=== PATIENT | female | born 1965 | race African-American/Black ===

== ENCOUNTER 2017-06-17 03:31 | Inpatient (IN) | payer BC ==
[~2017-06-17] VITALS: Ht 160 cm; Wt 193.9 kg
[2017-06-17] VITALS (7 sets, daily range): BP systolic 85–116; BP diastolic 46–69
[2017-06-17] MEDS: IV NORMAL SALINE 1000ML BAG 1,000 ML IV SCH ×7 (04:00→11:32)
[2017-06-17 04:16] LABS: BASO % 0 % (0-3); EOS % 0 % (0-3); HEMATOCRIT 23.3 % (36.0-47.0); HEMOGLOBIN 7.6 g/dL (12.0-15.5); LYMPH # 0.5 x10^3/uL (1.0-4.8); LYMPH % 3 % (24-48); MEAN CORPUSCULAR HEMOGLOBIN 28 pg (25-35); MEAN CORPUSCULAR HGB CONC 33 g/dL (31-37); MEAN CORPUSCULAR VOLUME 87 fL (79-100); MONO % 2 % (0-9); NEUT % 94 % (31-73); PLATELET COUNT 209 x10^3/uL (140-400); RED CELL DISTRIBUTION WIDTH 17.9 % (11.5-14.5); WHITE BLOOD COUNT 17.5 x10^3/uL (4.0-11.0)
[2017-06-17 04:28] LABS: CALCIUM 8.4 mg/dL (8.5-10.1); CREATININE 1.3 mg/dL (0.6-1.0); GFR 51.6; POTASSIUM 3.9 mmol/L (3.5-5.1)
[2017-06-17] MEDS ORDERED: VANCOMYCIN PER PHARMACY MC PRN (04:30)
[2017-06-17 04:34] LABS: DIRECT BILIRUBIN 0.2 mg/dL (0.0-0.2); TOTAL BILIRUBIN 0.6 mg/dL (0.2-1.0); TOTAL PROTEIN 6.7 g/dL (6.4-8.2)
[2017-06-17] MEDS ORDERED: PIP/TAZO PER PHARMACY MC PRN (05:00)
[2017-06-17] MEDS ORDERED: CLINDAMYCIN 600MG PREMIX 50 ML IV ONE (05:00)
[2017-06-17] MEDS ORDERED: PIPERACILLIN/TAZOBACTAM 4.5 GM in IV NORMAL SALINE 100ML 100 ML IV ONE (05:30)
[2017-06-17] MEDS ORDERED: ONDANSETRON PF 4 MG/2 ML VIAL. ONE (05:33)
[2017-06-17] MEDS: fentaNYL PF VIAL 100 MCG/2 ML VIAL IV PRN ×3 (05:37→16:04)
[2017-06-17 05:41] LABS: BILIRUBIN,URINE SMALL (NEG); GLUCOSE,URINE NEGATIVE (NEG); NITRITE,URINE NEGATIVE (NEG); PH,URINE 5.5; PROTEIN,URINE NEGATIVE (NEG-TRACE); UROBILINOGEN,URINE 0.2 mg/dL (0.2 mg/dL)
[2017-06-17 05:49] LABS: BARBITURATES NEG (NEG); BENZODIAZEPINES NEG (NEG); CANNABINOIDS NEG (NEG); COCAINE NEG (NEG); METHADONE NEG (NEG); OPIATES POS (NEG); PHENCYCLIDINE NEG (NEG)
[2017-06-17 05:58] LABS: BACTERIA,URINE 0 /HPF (0-FEW); RBC,URINE 0 /HPF (0-2); SQUAMOUS EPITHELIAL CELL,UR MOD /LPF; WBC,URINE OCC /HPF (0-4)
[2017-06-17] MEDS ORDERED: ONDANSETRON PF 4 MG/2 ML VIAL. IV ONE (06:00)
[2017-06-17] MEDS ORDERED: ONDANSETRON PF 4 MG/2 ML VIAL. IV PRN ×2 (06:30→13:30)
[2017-06-17] MEDS ORDERED: DEXTROSE 50% 25 GM / 50ML DISP.SYRIN. IV PRN (06:30)
[2017-06-17] MEDS ORDERED: fentaNYL PF VIAL 100 MCG/2 ML VIAL IV PRN (06:30)
[2017-06-17] MEDS ORDERED: ACETAMINOPHEN 325 MG TABLET. PO PRN ×3 (06:30→13:30)
--- NOTE | 2017-06-17 07:09 | EKG ---
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
--- NOTE | 2017-06-17 07:55 | RAD ---
Indication heart palpitations. A single view of the chest was obtained. No prior imaging of the chest is available. The heart and pulmonary vessels appear normal. The lungs are clear of acute infiltrates. Significant pleural fluid is not present. There is no pneumothorax. A right PICC line is noted with its tip at the brachiocephalic SVC junction. IMPRESSION: No acute or focal process seen in the chest
[2017-06-17] MEDS: INSULIN ASPART 300 UNITS/3 ML INSULN.PEN SQ SCH ×3 (08:00→17:00)
[2017-06-17] MEDS: IPRATRPIUM/ALBUTEROL 0.5/2.5MG 3 ML NEBU. NEB SCH ×4 (08:16→19:56)
--- NOTE | 2017-06-17 08:43 | ED.ADGEN ---
Past Medical History Past Medical History: Anemia, Diabetes-Type II, Hypertension Additional Past Medical Histor: MYOPATHY,LYPHEDEMA, CONSTIPATION,MORBID OBESITY Past Surgical History: Other Additional Past Surgical Histo: UNKNOWN WOUND VACS IN PLACE. 05/2017 Alcohol Use: None Drug Use: None Adult General Chief Complaint Chief Complaint: Palpitations HPI HPI Patient is a 52 year old woman, history of morbid obesity, lymphedema, with wound VAC in place, hypertension, who presents the emergency department from her nursing facility with report of tachycardia and palpitations. Patient also was noted to have a fever earlier today, and received Tylenol, was initiated on antibiotics with PICC line placement with concern for development of sepsis. Patient currently is a heart rate in the 120s, blood pressure was reportedly initially 130s over 60s however, in the ED patient's blood pressure is 60s over 40s, patient with normal mentation, is denying pain, states that she is feeling a rapid heart beat, but denies any shortness of breath, any nausea or vomiting, any weakness, numbness, tingling, injuries. Noted to have severe lymphedema bilaterally lower extremities which is chronic, with wound VAC in place as stated. Patient received a dose of Zosyn and ciprofloxacin yesterday after initiation by her nurse practitioner. She denies any urinary complaints, any injuries, or changes. Review of Systems Review of Systems Constitutional: Denies fever or chills. [] Eyes: Denies change in visual acuity. [] HENT: Denies nasal congestion or sore throat. [] Respiratory: Denies cough or shortness of breath. [] Cardiovascular: Denies chest pain or edema. [] Palpitations. GI: Denies abdominal pain, nausea, vomiting, bloody stools or diarrhea. [] : Denies dysuria. [] Musculoskeletal: Denies back pain or joint pain. [] Integument: Denies rash. [] Neurologic: Denies headache, focal weakness or sensory changes. [] Endocrine: Denies polyuria or polydipsia. [] Lymphatic: Denies swollen glands. [] Psychiatric: Denies depression or anxiety. [] Current Medications Current Medications Current Medications Medications (Trade) Dose Ordered Sig/Soledad Start Time Stop Time Status Last Admin Dose Admin Fentanyl Citrate (Fentanyl 2ml Vial) 25 mcg PRN Q15MIN PRN 06/17/17 04:00 06/18/17 03:59 06/17/17 05:37 25 MCG Physical Exam Physical Exam Constitutional: Well developed, morbidly obese, chronically ill in appearance, in no acute distress. [] HENT: Normocephalic, atraumatic, bilateral external ears normal, oropharynx moist, no oral exudates, nose normal. [] Eyes: PERRLA, EOMI, conjunctiva normal, no discharge. [] Neck: Normal range of motion, no tenderness, supple, no stridor. [] Cardiovascular:Heart rate regular rhythm, no murmur, S1, S2, tachycardic, no rubs or gallops. [] Lungs & Thorax: Diminished breath of the bases bilaterally, limited secondary to body habitus, no rhonchi or rales identified, no chest wall crepitus or tenderness. Right-sided PICC line in place. Abdomen: Bowel sounds normal, obese, no rebound, rigidity, no guarding, soft, no tenderness, no masses, no pulsatile masses. [] Skin: Warm, dry, no erythema, no rash. [] Back: No tenderness, no CVA tenderness. [] Extremities: Patient with severe lymphedema bilateral lower extremities, with scarring and skin creases noted, patient with open area of denuded skin over the lateral aspect of the left foot, with granulation tissue and some mild drainage. No induration or abscess formation identified. Neurologic: Alert and oriented X 3, normal motor function, normal sensory function, no focal deficits noted. [] Psychologic: Affect normal, judgement normal, mood normal. [] Current Patient Data Vital Signs Vital Signs Date Time Temp Pulse Resp B/P (MAP) Pulse Ox O2 Delivery O2 Flow Rate FiO2 06/17/17 04:10 114 32 84/41 (55) 95 Room Air 06/17/17 03:36 102.0 102.0 Lab Values Laboratory Tests Test 06/17/17 03:48 White Blood Count 17.5 x10^3/uL (4.0-11.0) H Red Blood Count 2.70 x10^6/uL (3.50-5.40) L Hemoglobin 7.6 g/dL (12.0-15.5) L Hematocrit 23.3 % (36.0-47.0) L Mean Corpuscular Volume 87 fL (79-100) Mean Corpuscular Hemoglobin 28 pg (25-35) Mean Corpuscular Hemoglobin Concent 33 g/dL (31-37) Red Cell Distribution Width 17.9 % (11.5-14.5) H Platelet Count 209 x10^3/uL (140-400) Neutrophils (%) (Auto) 94 % (31-73) H Lymphocytes (%) (Auto) 3 % (24-48) L Monocytes (%) (Auto) 2 % (0-9) Eosinophils (%) (Auto) 0 % (0-3) Basophils (%) (Auto) 0 % (0-3) Neutrophils # (Auto) 16.5 x10^3uL (1.8-7.7) H Lymphocytes # (Auto) 0.5 x10^3/uL (1.0-4.8) L Monocytes # (Auto) 0.4 x10^3/uL (0.0-1.1) Eosinophils # (Auto) 0.0 x10^3/uL (0.0-0.7) Basophils # (Auto) 0.0 x10^3/uL (0.0-0.2) Platelet Estimate Pending Sodium Level 137 mmol/L (136-145) Potassium Level 3.9 mmol/L (3.5-5.1) Chloride Level 101 mmol/L (98-107) Carbon Dioxide Level 27 mmol/L (21-32) Anion Gap 9 (6-14) Blood Urea Nitrogen 24 mg/dL (7-20) H Creatinine 1.3 mg/dL (0.6-1.0) H Estimated GFR (Cockcroft-Gault) 51.6 Glucose Level 110 mg/dL (70-99) H Lactic Acid Level 1.5 mmol/L (0.4-2.0) Calcium Level 8.4 mg/dL (8.5-10.1) L Total Bilirubin 0.6 mg/dL (0.2-1.0) Direct Bilirubin 0.2 mg/dL (0.0-0.2) Aspartate Amino Transferase (AST) 27 U/L (15-37) Alanine Aminotransferase (ALT) 17 U/L (14-59) Alkaline Phosphatase 83 U/L (46-116) Troponin I Quantitative < 0.017 ng/mL (0.000-0.055) FD-Zct-T-Type Natriuretic Peptide 3236 pg/mL (0-124) H Total Protein 6.7 g/dL (6.4-8.2) Albumin 2.0 g/dL (3.4-5.0) L Thyroid Stimulating Hormone (TSH) 7.770 uIU/mL (0.358-3.74) H Laboratory Tests 06/17/17 03:48 Laboratory Tests 06/17/17 03:48 EKG EKG EC: Sinus tachycardia, heart rate 112 bpm, upright axis, QTC of 419, FL 114, QRS of 68, mild baseline artifact noted, no ST elevations or depressions, abnormal ECG, does not meet STEMI criteria. As interpreted by me. [] Radiology/Procedures Radiology/Procedures [][facility] [address] [place] [address] IMAGING REPORT Signed PATIENT: CAITIE SHIELDS ACCOUNT: [id number] : 1965 LOCATION: [facility] ICU AGE: 52 SEX: F EXAM STATUS: ADM IN ORD. PHYSICIAN: DAVIDSON MONTES DO REASON: Palpitations PROCEDURE: PORTABLE CHEST 1V Indication heart palpitations. A single view of the chest was obtained. No prior imaging of the chest is available. The heart and pulmonary vessels appear normal. The lungs are clear of acute infiltrates. Significant pleural fluid is not present. There is no pneumothorax. A right PICC line is noted with its tip at the brachiocephalic SVC junction. IMPRESSION: No acute or focal process seen in the chest DICTATED and SIGNED BY: JADEN HAIDER MD DATE: 06/17/17747 CC: LALI GRAF III DO; DAVIDSON MONTES DO; NIRALI BETANCOURT ~ Course & Med Decision Making Course & Med Decision Making Pertinent Labs and Imaging studies reviewed. (See chart for details) Patient initiated on sepsis protocol upon arousing the ED, including 30 mL/kg fluid bolus. Gloria catheter was placed, after receiving 2 L of fluid, patient's blood pressures are now 100s over 50s and 60s, heart rates have now dropped down to the low 100s, urine output is only 80 mL at this time. Will continue with the rest of the patient's fluid bolus at this point, patient's lungs remain clear, oxygen saturation and respiratory function remains stable at this time. Concern for severe sepsis as stated, patient with leukocytosis of 17.5, left shift, no bandemia. Patient is a history of congestive heart failure, at this time after receiving additional 2 L of fluid, blood pressures remain labile , low 100s to 90s over 50s and 60s, heart rate remains in the low 100s. No evidence of respiratory or pulmonary compromise at this time. PICC line is in place, no indication for pressors at this time, as patient is responding to fluid bolus, and has evidence of inadequate resuscitation at this time. Patient initiated on Zosyn and clindamycin, blood cultures and urine cultures pending. No evidence of infection and urinalysis. Chest x-ray is unremarkable. I did discuss these findings with patient, concern for possible infection of her lower extremities, with wound VAC in place, consultation placed for infectious disease, and for wound management. Patient continues to rest comfortably without complaints, states she is feeling better at this time. Findings as above discussed with Dr. Graf of internal medicine, patient accepted to his service as a full admission to the ICU for continued resuscitation, consultation , and close monitoring. Bridge orders entered per discussion. Dragon Disclaimer Dragon Disclaimer This electronic medical record was generated, in whole or in part, using a voice recognition dictation system. Critical Care Time Critical care time was 20 minutes exclusive of procedures. Departure Impression: Primary Impression: Sepsis Disposition: ADMITTED INPATIENT Admitting Physician: Lali Graf Condition: IMPROVED DAVIDSON MONTES DO Jun 17, 2017 08:43
--- NOTE | 2017-06-17 09:31 | PDOC2 ---
IM Consult Referring physician Dr Graf for sepsis Date of Admission DATE: 06/17/17 TIME: 09:20 Chief Complaint Chief Complaint 52 yr old BF with h/o lymphedema who was at [facility], transferred here for fever, tachycardia and possible sepsis. Did have zosyn and cipro yesterday and picc placed. Pt hypotensive, tachycardic, and fever 102. Normal lactic acid, c/o rt leg pain, no other complaints. Problems: Past Medical History Cardiovascular: HTN Heme/Onc: Anemia NOS Endocrine: Diabetes Dermatology: Other (rt leg wound and left foot wound) Past Surgical History Past Surgical History: Other (rt leg hematoma surgery, and lyposuction done) Past Social History PSH neg for smoking, etoh, drugs Review of Symptoms Review of Symptoms General ROS: positive for - Psychological ROS: negative Ophthalmic ROS: negative ENT ROS: negative Allergy and Immunology ROS: negative Hematology and Lymphatic: negative Endocrine ROS: negative Respiratory ROS: no cold, cough, dyspnea. Cardiovascular ROS: no chest pain or dyspnea on exertion Gastrointestinal ROS: no abdominal pain, change in bowel habits, or black or bloody stools Genito-Urinary ROS: no dysuria, trouble voiding, or hematuria Musculoskeletal ROS: rt leg pain Neurological ROS: negative Dermatological ROS: no rash Medications Current Medications Acetaminophen (Tylenol) 650 mg PRN Q4HRS PRN PO FEVER; Start 06/17/17 at 06:30 ; Stop 06/18/17 at 06:29 Albuterol/ Ipratropium (Duoneb) 3 ml RTQID NEB Last administered on 06/17/17t 08:16; Start 06/17/17 at 08:00; Stop 06/18/17 at 07:59 Clindamycin Phosphate 50 ml @ 100 mls/hr 1X ONCE IV Last administered on 06/17t 05:43; Start 06/17/17 at 05:00; Stop 06/17/17 at 05:29; Status DC Clindamycin Phosphate 50 ml @ 100 mls/hr Q8HRS IV ; Start 06/17/17 at 14:00 Dextrose (Dextrose 50%-Water Syringe) 12.5 gm PRN Q15MIN PRN IV SEE COMMENTS; Start 06/17/17 at 06:30 Fentanyl Citrate (Fentanyl 2ml Vial) 25 mcg PRN Q15MIN PRN IV PAIN GREATER THAN 3/10 Last administered on 06/17/17 05:37; Start 06/17/17 at 04:00; Stop at 03:59 Fentanyl Citrate (Fentanyl 2ml Vial) 50 mcg PRN Q1HR PRN IV PAIN; Start at 06:30; Stop 06/18/17 at 06:29 Insulin Aspart (NovoLOG) 0-5 UNITS TIDWMEALS SQ ; Start 06/17/17 at 08:00 Ondansetron HCl (Zofran) 4 mg 1X ONCE IV Last administered on 06/17/17 05:38 ; Start 06/17/17 at 06:00; Stop 06/17/17 at 06:01; Status DC Ondansetron HCl (Zofran) 4 mg PRN Q8HRS PRN IV NAUSEA/VOMITING; Start 06/17/17 at 06:30; Stop 06/18/17 at 06:29 Ondansetron HCl (Zofran) 4 mg STK-MED ONCE .ROUTE ; Start 06/17/17 at 05:33; Stop 06/17/17 at 05:34; Status DC Piperacillin Sod/ Tazobactam Sod (Zosyn Per Pharmacy) 1 each PRN DAILY PRN MC SEE COMMENTS; Start 06/17/17 at 05:00 Piperacillin Sod/ Tazobactam Sod 4.5 gm/Sodium Chloride 100 ml @ 200 mls/hr 1X ONCE IV Last administered on 06/17/17 05:43; Start 06/17/17 at 05:30; Stop 06/17/17 at 05:59; Status DC Piperacillin Sod/ Tazobactam Sod 4.5 gm/Sodium Chloride 100 ml @ 200 mls/hr Q6HRS IV ; Start 06/17/17 at 12:00 Sodium Chloride 1,000 ml @ 100 mls/hr Q10H IV ; Start 06/17/17 at 06:30; Stop 06/18/17 at 06:29 Sodium Chloride 1,000 ml @ 4,770 mls/hr Q13M IV Last administered on 05:13; Start 06/17/17 at 05:00; Stop 06/17/17 at 06:00; Status DC Vancomycin HCl (Vanco Per Pharmacy) 1 each PRN DAILY PRN MC SEE COMMENTS; Start 06/17/17 at 04:30; Stop 06/17/17 at 04:43; Status DC Allergy Allergies Coded Allergies Type Severity Reaction Last Updated Verified vancomycin Allergy Unknown 06/17/17 Yes Physical Exam Physical Exam General appearance - alert,well appearing, and in no distress and oriented to person, place, and time Mental Status - alert, oriented to person, place, and time, affect appropriate to mood Head - normal Chest - clear to auscultation, no wheezes, rales or rhonchi, symmetric air entry Heart - S1 and S2 normal Abdomen - soft, nontender, nondistended, no masses or organomegaly Neurological - alert and oriented Musculoskeletal - no muscular tenderness noted Extremities - severe nina leg lymph edema, rt leg wound, some rt leg tenderness/ cellulitis, left foot wound Skin - warm and dry Labs Laboratory Tests Test 06/17/17 03:48 06/17/17 05:32 06/17/17 08:29 White Blood Count 17.5 x10^3/uL (4.0-11.0) Red Blood Count 2.70 x10^6/uL (3.50-5.40) Hemoglobin 7.6 g/dL (12.0-15.5) Hematocrit 23.3 % (36.0-47.0) Mean Corpuscular Volume 87 fL (79-100) Mean Corpuscular Hemoglobin 28 pg (25-35) Mean Corpuscular Hemoglobin Concent 33 g/dL (31-37) Red Cell Distribution Width 17.9 % (11.5-14.5) Platelet Count 209 x10^3/uL (140-400) Neutrophils (%) (Auto) 94 % (31-73) Lymphocytes (%) (Auto) 3 % (24-48) Monocytes (%) (Auto) 2 % (0-9) Eosinophils (%) (Auto) 0 % (0-3) Basophils (%) (Auto) 0 % (0-3) Neutrophils # (Auto) 16.5 x10^3uL (1.8-7.7) Lymphocytes # (Auto) 0.5 x10^3/uL (1.0-4.8) Monocytes # (Auto) 0.4 x10^3/uL (0.0-1.1) Eosinophils # (Auto) 0.0 x10^3/uL (0.0-0.7) Basophils # (Auto) 0.0 x10^3/uL (0.0-0.2) Sodium Level 137 mmol/L (136-145) Potassium Level 3.9 mmol/L (3.5-5.1) Chloride Level 101 mmol/L (98-107) Carbon Dioxide Level 27 mmol/L (21-32) Anion Gap 9 (6-14) Blood Urea Nitrogen 24 mg/dL (7-20) Creatinine 1.3 mg/dL (0.6-1.0) Estimated GFR (Cockcroft-Gault) 51.6 Glucose Level 110 mg/dL (70-99) Lactic Acid Level 1.5 mmol/L (0.4-2.0) Calcium Level 8.4 mg/dL (8.5-10.1) Total Bilirubin 0.6 mg/dL (0.2-1.0) Direct Bilirubin 0.2 mg/dL (0.0-0.2) Aspartate Amino Transf (AST/SGOT) 27 U/L (15-37) Alanine Aminotransferase (ALT/SGPT) 17 U/L (14-59) Alkaline Phosphatase 83 U/L (46-116) Troponin I Quantitative < 0.017 ng/mL (0.000-0.055) NQ-Fdh-N-Type Natriuretic Peptide 3236 pg/mL (0-124) Total Protein 6.7 g/dL (6.4-8.2) Albumin 2.0 g/dL (3.4-5.0) Thyroid Stimulating Hormone (TSH) 7.770 uIU/mL (0.358-3.74) Urine Collection Type U cath Urine Color Ani Urine Clarity Cloudy Urine pH 5.5 Urine Specific [place] 1.025 Urine Protein Negative mg/dL (NEG-TRACE) Urine Glucose (UA) Negative mg/dL (NEG) Urine Ketones (Stick) Negative mg/dL (NEG) Urine Blood Negative (NEG) Urine Nitrite Negative (NEG) Urine Bilirubin Small (NEG) Urine Urobilinogen Dipstick 0.2 mg/dL (0.2 mg/dL) Urine Leukocyte Esterase Small (NEG) Urine RBC 0 /HPF (0-2) Urine WBC Occ /HPF (0-4) Urine Squamous Epithelial Cells Mod /LPF Urine Amorphous Sediment Present /HPF Urine Bacteria 0 /HPF (0-FEW) Urine Opiates Screen Pos (NEG) Urine Methadone Screen Neg (NEG) Urine Barbiturates Neg (NEG) Urine Phencyclidine Screen Neg (NEG) Urine Amphetamine/Methamphetamine Neg (NEG) Urine Benzodiazepines Screen Neg (NEG) Urine Cocaine Screen Neg (NEG) Urine Cannabinoids Screen Neg (NEG) Urine Ethyl Alcohol Neg (NEG) Glucose (Fingerstick) 103 mg/dL (70-99) Laboratory Tests Test 06/17/17 03:48 06/17/17 05:32 06/17/17 08:29 White Blood Count 17.5 x10^3/uL (4.0-11.0) Red Blood Count 2.70 x10^6/uL (3.50-5.40) Hemoglobin 7.6 g/dL (12.0-15.5) Hematocrit 23.3 % (36.0-47.0) Mean Corpuscular Volume 87 fL (79-100) Mean Corpuscular Hemoglobin 28 pg (25-35) Mean Corpuscular Hemoglobin Concent 33 g/dL (31-37) Red Cell Distribution Width 17.9 % (11.5-14.5) Platelet Count 209 x10^3/uL (140-400) Neutrophils (%) (Auto) 94 % (31-73) Lymphocytes (%) (Auto) 3 % (24-48) Monocytes (%) (Auto) 2 % (0-9) Eosinophils (%) (Auto) 0 % (0-3) Basophils (%) (Auto) 0 % (0-3) Neutrophils # (Auto) 16.5 x10^3uL (1.8-7.7) Lymphocytes # (Auto) 0.5 x10^3/uL (1.0-4.8) Monocytes # (Auto) 0.4 x10^3/uL (0.0-1.1) Eosinophils # (Auto) 0.0 x10^3/uL (0.0-0.7) Basophils # (Auto) 0.0 x10^3/uL (0.0-0.2) Sodium Level 137 mmol/L (136-145) Potassium Level 3.9 mmol/L (3.5-5.1) Chloride Level 101 mmol/L (98-107) Carbon Dioxide Level 27 mmol/L (21-32) Anion Gap 9 (6-14) Blood Urea Nitrogen 24 mg/dL (7-20) Creatinine 1.3 mg/dL (0.6-1.0) Estimated GFR (Cockcroft-Gault) 51.6 Glucose Level 110 mg/dL (70-99) Lactic Acid Level 1.5 mmol/L (0.4-2.0) Calcium Level 8.4 mg/dL (8.5-10.1) Total Bilirubin 0.6 mg/dL (0.2-1.0) Direct Bilirubin 0.2 mg/dL (0.0-0.2) Aspartate Amino Transf (AST/SGOT) 27 U/L (15-37) Alanine Aminotransferase (ALT/SGPT) 17 U/L (14-59) Alkaline Phosphatase 83 U/L (46-116) Troponin I Quantitative < 0.017 ng/mL (0.000-0.055) NQ-Zyh-Q-Type Natriuretic Peptide 3236 pg/mL (0-124) Total Protein 6.7 g/dL (6.4-8.2) Albumin 2.0 g/dL (3.4-5.0) Thyroid Stimulating Hormone (TSH) 7.770 uIU/mL (0.358-3.74) Urine Collection Type U cath Urine Color Ani Urine Clarity Cloudy Urine pH 5.5 Urine Specific [place] 1.025 Urine Protein Negative mg/dL (NEG-TRACE) Urine Glucose (UA) Negative mg/dL (NEG) Urine Ketones (Stick) Negative mg/dL (NEG) Urine Blood Negative (NEG) Urine Nitrite Negative (NEG) Urine Bilirubin Small (NEG) Urine Urobilinogen Dipstick 0.2 mg/dL (0.2 mg/dL) Urine Leukocyte Esterase Small (NEG) Urine RBC 0 /HPF (0-2) Urine WBC Occ /HPF (0-4) Urine Squamous Epithelial Cells Mod /LPF Urine Amorphous Sediment Present /HPF Urine Bacteria 0 /HPF (0-FEW) Urine Opiates Screen Pos (NEG) Urine Methadone Screen Neg (NEG) Urine Barbiturates Neg (NEG) Urine Phencyclidine Screen Neg (NEG) Urine Amphetamine/Methamphetamine Neg (NEG) Urine Benzodiazepines Screen Neg (NEG) Urine Cocaine Screen Neg (NEG) Urine Cannabinoids Screen Neg (NEG) Urine Ethyl Alcohol Neg (NEG) Glucose (Fingerstick) 103 mg/dL (70-99) Vitals Vital Signs Date Time Temp Pulse Resp B/P (MAP) Pulse Ox O2 Delivery O2 Flow Rate FiO2 06/17/17 08:16 96 Room Air 06/17/17 07:30 20 06/17/17 07:15 98.2 104 99/50 (66) 98.2 Assessment Assessment Fever Leukocytosis Rt leg wound Left foot wound Rt foot wound Obesity Plan Plan fluids supportive care check cultures zyvox and zosyn d/c clinda ISABEL JAVIER MD Jun 17, 2017 09:31
[2017-06-17 09:39] LABS: PLT ESTIMATE ADEQUATE (ADEQUATE)
[2017-06-17 09:41] LABS: TOXIC VACUOLATION PRESENT
[2017-06-17] MEDS ORDERED: FERR-26 PO (09:44)
[2017-06-17] MEDS ORDERED: FURO20TA3 PO (09:44)
[2017-06-17] MEDS ORDERED: POLY17PO29 PO (09:44)
[2017-06-17] MEDS ORDERED: MINE120C TP (09:44)
[2017-06-17] MEDS ORDERED: RIVA20TA2 PO (09:44)
[2017-06-17] MEDS ORDERED: PANT40TA5 PO (09:44)
[2017-06-17] MEDS ORDERED: ISOS60TA2 PO (11:27)
[2017-06-17] MEDS ORDERED: ZINC220C5 PO (11:27)
[2017-06-17] MEDS ORDERED: ASPI-482 PO (11:27)
[2017-06-17] MEDS ORDERED: ATOR40TA59 PO (11:32)
[2017-06-17] MEDS ORDERED: LACT1CAP2 PO (11:32)
[2017-06-17] MEDS ORDERED: ASCO500T3 PO (11:32)
[2017-06-17] MEDS ORDERED: SENN1TAB21 PO (11:32)
[2017-06-17] MEDS: PIPERACILLIN/TAZOBACTAM 4.5 GM in IV NORMAL SALINE 100ML 100 ML IV SCH ×2 (11:32→17:07)
[2017-06-17] MEDS ORDERED: OXYC10TA PO (11:35)
[2017-06-17] MEDS ORDERED: HYDR25CA75 PO (11:35)
[2017-06-17] MEDS ORDERED: MAGN400O7 PO ×2 (11:38→11:40)
[2017-06-17] MEDS ORDERED: MAGN2400 PO (11:38)
[2017-06-17] MEDS ORDERED: ACET325T21 PO (11:40)
[2017-06-17] MEDS ORDERED: MULT-208 PO (11:58)
[2017-06-17] MEDS ORDERED: LACT1TAB20 PO (11:58)
[2017-06-17] MEDS ORDERED: BISA10SU2 RC (11:58)
[2017-06-17] MEDS ORDERED: HYDR453.3 TP (11:58)
[2017-06-17] MEDS ORDERED: [UNRECOGNIZED DRUG - CODE] IV (11:58)
[2017-06-17] MEDS ORDERED: BISA10EN RC (11:58)
[2017-06-17] MEDS ORDERED: PIPE3.3734 IV (11:58)
[2017-06-17] MEDS ORDERED: COLL30OI TP (11:58)
--- NOTE | 2017-06-17 13:27 | PDOC1 ---
History and Physical Date of Admission Date of Admission 06/17/17 Identification/Chief Complaint Chief Complaint tachycardia, fever Problems: Source Source: Chart review, Patient History of Present Illness History of Present Illness HPI Patient is a 52 year old woman, history of morbid obesity, lymphedema, with wound VAC in place, hypertension, was [facility] for tachycardia and fever. Pt was in [facility] 1month ago post fall, with right thigh hematoma on warfarin for PE. Warfarin was held, since then she has the right thigh Vac ON. She was transfered to rehab, new PICC line 06/16 and initiated zosyn and clinda for possible sepsis. Pt was found T 103, HR 102, then sent here. in ER, pt HR 120s, bp ok then drop to 60s. She denies N/V, cough, sob, chest pain, diarrhea, dysuria. Noted to have severe lymphedema bilaterally lower extremities which is chronic , with wound VAC in place as stated. Patient received a dose of Zosyn and ciprofloxacin yesterday after initiation by her nurse practitioner. pt got 4L ivf overnight in ICU, no need pressors. Past Medical History Cardiovascular: HTN Pulmonary: Pulmonary embolus Heme/Onc: Anemia NOS Endocrine: Diabetes Dermatology: Other (rt leg wound and left foot wound) Past Surgical History Past Surgical History: Other (rt leg hematoma surgery, and lyposuction done) Family History Family History: Hypertension Social History Smoke: No ALCOHOL: none Drugs: None Current Medications Current Medications Current Medications Medications (Trade) Dose Ordered Sig/Soledad Start Time Stop Time Status Last Admin Dose Admin Acetaminophen (Tylenol) 650 mg PRN Q4HRS PRN 06/17/17 06:30 06/18/17 06:29 Albuterol/ Ipratropium (Duoneb) 3 ml RTQID 06/17/17 08:00 06/18/17 07:59 06/17/17 11:58 3 ML Clindamycin Phosphate 50 ml @ 100 mls/hr 1X ONCE 06/17/17 05:00 06/17/17 05:29 DC 06/17/17 05:43 100 MLS/HR Dextrose (Dextrose 50%-Water Syringe) 12.5 gm PRN Q15MIN PRN 06/17/17 06:30 Fentanyl Citrate (Fentanyl 2ml Vial) 50 mcg PRN Q1HR PRN 06/17/17 06:30 06/18/17 06:29 Insulin Aspart (NovoLOG) 0-5 UNITS TIDWMEALS 06/17/17 08:00 Linezolid 300 ml @ 300 mls/hr Q12HR 06/17/17 21:00 Ondansetron HCl (Zofran) 4 mg PRN Q8HRS PRN 06/17/17 06:30 06/18/17 06:29 Piperacillin Sod/ Tazobactam Sod (Zosyn Per Pharmacy) 1 each PRN DAILY PRN 06/17/17 05:00 06/17/17 11:14 DC Piperacillin Sod/ Tazobactam Sod 4.5 gm/Sodium Chloride 100 ml @ 200 mls/hr Q6HRS 06/17/17 12:00 06/17/17 11:32 200 MLS/HR Sodium Chloride 1,000 ml @ 100 mls/hr Q10H 06/17/17 06:30 06/18/17 06:29 06/17/17 11:32 100 MLS/HR Vancomycin HCl (Vanco Per Pharmacy) 1 each PRN DAILY PRN 06/17/17 04:30 06/17/17 04:43 DC Allergies Allergies Allergies Coded Allergies Type Severity Reaction Last Updated Verified vancomycin Allergy Intermediate 06/17/17 Yes ROS Review of System CONSTITUTIONAL: No fever or chills EYES: No recent changes SKIN: No rash or itching CARDIOVASCULAR: No chest pain, syncope, palpitations, or edema RESPIRATORY: No SOB or cough GASTROINTESTINAL: No nausea, vomiting or abdominal pain NEUROLOGICAL: No headaches or weakness ENDOCRINE: No cold or heat intolerance GENITOURINARY: No urgency or frequency of urination MUSCULOSKELETAL: No back pain or joint pain LYMPHATICS: No enlarged lymph nodes PSYCHIATRIC: No anxiety or depression Physical Exam Physical Exam GEN.: No apparent distress. Alert and oriented. HEENT: Head is normocephalic, atraumatic NECK: Supple. LUNGS: Clear to auscultation. HEART: RRR, S1, S2 present. Peripheral pulses intact ABDOMEN: Soft, nontender. Positive bowel sounds. EXTREMITIES: bl lower ext severe chronic lymphedema, with possible more swelling on right leg. RIght thigh has a open wound with wound vac on. NEUROLOGIC: Normal speech, normal tone PSYCHIATRIC: Normal affect, normal mood. SKIN: No ulcerations Vitals Vitals Vital Signs Date Time Temp Pulse Resp B/P (MAP) Pulse Ox O2 Delivery O2 Flow Rate FiO2 06/17/17 12:00 Room Air 06/17/17 11:59 98 06/17/17 10:38 18 06/17/17 07:15 98.2 104 99/50 (66) 98.2 Labs Labs Laboratory Tests Test 06/17/17 03:48 06/17/17 05:32 06/17/17 08:29 06/17/17 09:00 White Blood Count 17.5 x10^3/uL (4.0-11.0) Red Blood Count 2.70 x10^6/uL (3.50-5.40) Hemoglobin 7.6 g/dL (12.0-15.5) Hematocrit 23.3 % (36.0-47.0) Mean Corpuscular Volume 87 fL (79-100) Mean Corpuscular Hemoglobin 28 pg (25-35) Mean Corpuscular Hemoglobin Concent 33 g/dL (31-37) Red Cell Distribution Width 17.9 % (11.5-14.5) Platelet Count 209 x10^3/uL (140-400) Neutrophils (%) (Auto) 94 % (31-73) Lymphocytes (%) (Auto) 3 % (24-48) Monocytes (%) (Auto) 2 % (0-9) Eosinophils (%) (Auto) 0 % (0-3) Basophils (%) (Auto) 0 % (0-3) Neutrophils # (Auto) 16.5 x10^3uL (1.8-7.7) Lymphocytes # (Auto) 0.5 x10^3/uL (1.0-4.8) Monocytes # (Auto) 0.4 x10^3/uL (0.0-1.1) Eosinophils # (Auto) 0.0 x10^3/uL (0.0-0.7) Basophils # (Auto) 0.0 x10^3/uL (0.0-0.2) Segmented Neutrophils % 66 % (35-66) Band Neutrophils % 26 % (0-9) Lymphocytes % 6 % (24-48) Monocytes % 2 % (0-10) Toxic Vacuolation Present Platelet Estimate Adequate (ADEQUATE) Sodium Level 137 mmol/L (136-145) Potassium Level 3.9 mmol/L (3.5-5.1) Chloride Level 101 mmol/L (98-107) Carbon Dioxide Level 27 mmol/L (21-32) Anion Gap 9 (6-14) Blood Urea Nitrogen 24 mg/dL (7-20) Creatinine 1.3 mg/dL (0.6-1.0) Estimated GFR (Cockcroft-Gault) 51.6 Glucose Level 110 mg/dL (70-99) Lactic Acid Level 1.5 mmol/L (0.4-2.0) 1.2 mmol/L (0.4-2.0) Calcium Level 8.4 mg/dL (8.5-10.1) Total Bilirubin 0.6 mg/dL (0.2-1.0) Direct Bilirubin 0.2 mg/dL (0.0-0.2) Aspartate Amino Transf (AST/SGOT) 27 U/L (15-37) Alanine Aminotransferase (ALT/SGPT) 17 U/L (14-59) Alkaline Phosphatase 83 U/L (46-116) Troponin I Quantitative < 0.017 ng/mL (0.000-0.055) WK-Iap-Y-Type Natriuretic Peptide 3236 pg/mL (0-124) Total Protein 6.7 g/dL (6.4-8.2) Albumin 2.0 g/dL (3.4-5.0) Thyroid Stimulating Hormone (TSH) 7.770 uIU/mL (0.358-3.74) Urine Collection Type U cath Urine Color Ani Urine Clarity Cloudy Urine pH 5.5 Urine Specific [place] 1.025 Urine Protein Negative mg/dL (NEG-TRACE) Urine Glucose (UA) Negative mg/dL (NEG) Urine Ketones (Stick) Negative mg/dL (NEG) Urine Blood Negative (NEG) Urine Nitrite Negative (NEG) Urine Bilirubin Small (NEG) Urine Urobilinogen Dipstick 0.2 mg/dL (0.2 mg/dL) Urine Leukocyte Esterase Small (NEG) Urine RBC 0 /HPF (0-2) Urine WBC Occ /HPF (0-4) Urine Squamous Epithelial Cells Mod /LPF Urine Amorphous Sediment Present /HPF Urine Bacteria 0 /HPF (0-FEW) Urine Opiates Screen Pos (NEG) Urine Methadone Screen Neg (NEG) Urine Barbiturates Neg (NEG) Urine Phencyclidine Screen Neg (NEG) Urine Amphetamine/Methamphetamine Neg (NEG) Urine Benzodiazepines Screen Neg (NEG) Urine Cocaine Screen Neg (NEG) Urine Cannabinoids Screen Neg (NEG) Urine Ethyl Alcohol Neg (NEG) Glucose (Fingerstick) 103 mg/dL (70-99) Test 06/17/17 12:15 Glucose (Fingerstick) 102 mg/dL (70-99) Laboratory Tests Test 06/17/17 03:48 06/17/17 05:32 06/17/17 08:29 06/17/17 09:00 White Blood Count 17.5 x10^3/uL (4.0-11.0) Red Blood Count 2.70 x10^6/uL (3.50-5.40) Hemoglobin 7.6 g/dL (12.0-15.5) Hematocrit 23.3 % (36.0-47.0) Mean Corpuscular Volume 87 fL (79-100) Mean Corpuscular Hemoglobin 28 pg (25-35) Mean Corpuscular Hemoglobin Concent 33 g/dL (31-37) Red Cell Distribution Width 17.9 % (11.5-14.5) Platelet Count 209 x10^3/uL (140-400) Neutrophils (%) (Auto) 94 % (31-73) Lymphocytes (%) (Auto) 3 % (24-48) Monocytes (%) (Auto) 2 % (0-9) Eosinophils (%) (Auto) 0 % (0-3) Basophils (%) (Auto) 0 % (0-3) Neutrophils # (Auto) 16.5 x10^3uL (1.8-7.7) Lymphocytes # (Auto) 0.5 x10^3/uL (1.0-4.8) Monocytes # (Auto) 0.4 x10^3/uL (0.0-1.1) Eosinophils # (Auto) 0.0 x10^3/uL (0.0-0.7) Basophils # (Auto) 0.0 x10^3/uL (0.0-0.2) Segmented Neutrophils % 66 % (35-66) Band Neutrophils % 26 % (0-9) Lymphocytes % 6 % (24-48) Monocytes % 2 % (0-10) Toxic Vacuolation Present Platelet Estimate Adequate (ADEQUATE) Sodium Level 137 mmol/L (136-145) Potassium Level 3.9 mmol/L (3.5-5.1) Chloride Level 101 mmol/L (98-107) Carbon Dioxide Level 27 mmol/L (21-32) Anion Gap 9 (6-14) Blood Urea Nitrogen 24 mg/dL (7-20) Creatinine 1.3 mg/dL (0.6-1.0) Estimated GFR (Cockcroft-Gault) 51.6 Glucose Level 110 mg/dL (70-99) Lactic Acid Level 1.5 mmol/L (0.4-2.0) 1.2 mmol/L (0.4-2.0) Calcium Level 8.4 mg/dL (8.5-10.1) Total Bilirubin 0.6 mg/dL (0.2-1.0) Direct Bilirubin 0.2 mg/dL (0.0-0.2) Aspartate Amino Transf (AST/SGOT) 27 U/L (15-37) Alanine Aminotransferase (ALT/SGPT) 17 U/L (14-59) Alkaline Phosphatase 83 U/L (46-116) Troponin I Quantitative < 0.017 ng/mL (0.000-0.055) GA-Jgo-F-Type Natriuretic Peptide 3236 pg/mL (0-124) Total Protein 6.7 g/dL (6.4-8.2) Albumin 2.0 g/dL (3.4-5.0) Thyroid Stimulating Hormone (TSH) 7.770 uIU/mL (0.358-3.74) Urine Collection Type U cath Urine Color Ani Urine Clarity Cloudy Urine pH 5.5 Urine Specific [place] 1.025 Urine Protein Negative mg/dL (NEG-TRACE) Urine Glucose (UA) Negative mg/dL (NEG) Urine Ketones (Stick) Negative mg/dL (NEG) Urine Blood Negative (NEG) Urine Nitrite Negative (NEG) Urine Bilirubin Small (NEG) Urine Urobilinogen Dipstick 0.2 mg/dL (0.2 mg/dL) Urine Leukocyte Esterase Small (NEG) Urine RBC 0 /HPF (0-2) Urine WBC Occ /HPF (0-4) Urine Squamous Epithelial Cells Mod /LPF Urine Amorphous Sediment Present /HPF Urine Bacteria 0 /HPF (0-FEW) Urine Opiates Screen Pos (NEG) Urine Methadone Screen Neg (NEG) Urine Barbiturates Neg (NEG) Urine Phencyclidine Screen Neg (NEG) Urine Amphetamine/Methamphetamine Neg (NEG) Urine Benzodiazepines Screen Neg (NEG) Urine Cocaine Screen Neg (NEG) Urine Cannabinoids Screen Neg (NEG) Urine Ethyl Alcohol Neg (NEG) Glucose (Fingerstick) 103 mg/dL (70-99) Test 06/17/17 12:15 Glucose (Fingerstick) 102 mg/dL (70-99) VTE Prophylaxis Ordered VTE Prophylaxis Devices: No VTE Pharmacological Prophylaxi: No Assessment/Plan Assessment/Plan sepsis 2/2 right leg cellulitis possibly recent fall with right thigh hematoma s/p evacuation, liposuction with wound vac on dm2 htn chronic anemia h/o PE on xarelto bl leg severe lymphedema morbid obesity CKD3 MOderate malnutrition hypotension with septic shock plan: fu with ID on zosyn, zovox, fu bcx cont home meds ptot wound care with wound vac ssi on xarelto icu car for today anemia work up JONATHAN SOTO MD Jun 17, 2017 13:27
[2017-06-17] MEDS ORDERED: BISACODYL 10 MG SUPP.RECT. RC PRN (13:30)
[2017-06-17] MEDS ORDERED: hydrOXYzine PAMOATE 25 MG CAPSULE PO PRN (13:30)
[2017-06-17] MEDS ORDERED: DOCUSATE SODIUM 100 MG CAPSULE. PO PRN (13:30)
[2017-06-17] MEDS ORDERED: hydrALAZINE 20 MG/ML VIAL. IVP PRN (13:30)
[2017-06-17] MEDS ORDERED: CLINDAMYCIN 600MG PREMIX 50 ML IV SCH (14:00)
[2017-06-17] MEDS ORDERED: ANTI-COAG MONITOR BY PHARMACY. MC PRN (14:15)
[2017-06-17] MEDS: oxyCODONE IR 5 MG TABLET PO PRN ×2 (17:00→20:52)
[2017-06-17] MEDS: RIVAROXABAN 10 MG TABLET. PO SCH (17:00)
[2017-06-17] MEDS: MORPHINE SULFATE 2 MG/ML DISP.SYRIN. IV PRN ×2 (19:40→22:25)
[2017-06-17] MEDS: SENNOSIDES/DOCUSATE 8.6/50MG TABLET. PO SCH (20:34)
[2017-06-17] MEDS: ATORVASTATIN CALCIUM 40 MG TABLET. PO SCH (20:34)
[2017-06-17] MEDS: HYDROCORTISONE 1% TOPICAL CREAM 30GM TUBE. TP SCH (21:00)
--- NOTE | 2017-06-17 23:04 | EKG ---
[facility] [address] [place] [address] Test Date: 2017-06-17 Test Time: 19:57:20 Pat Name: CAITIE SHIELDS Department: Room: 113 1 Gender: F Monorail Operator: STACEY : 1965 Requested By: BOUCHRA SANDRA Order Number: [id number] Reading MD: Measurements Intervals [place] Rate: 119 P: 64 AK: 124 QRS: 48 QRSD: 76 T: 71 QT: 300 QTc: 423 Interpretive Statements SINUS TACHYCARDIA LEFT ATRIAL ABNORMALITY ABNORMAL ECG RI6.01 No previous ECG available for comparison
[2017-06-18] VITALS (11 sets, daily range): BP systolic 80–125; BP diastolic 46–69
--- NOTE | 2017-06-18 00:30 | ACF ---
Admission Forms Criteria SEPSIS and OTHER FEBRILE ILLNESS, W/O FOCAL INFECTION Clinical Indications for Admission to Inpatient Care ( Place 'X' for any and all applicable criteria): Admission is indicated for ANY ONE of the following (1)(2)(3)(4): [ ] I. Bacteremia [ ]II. Suspected or identified specific infection requiring hospitalization (eg, meningitis, endocarditis) [X]III. Hemodynamic instability [ ]IV. Altered mental status [ ]V. Failure or unavailability of outpatient antimicrobial treatment [ ]. Hypoxemia [ ]VII. Seizures [ ]VIII. High-risk febrile neutropenia [ ]IX. Need for parenteral antibiotic in patient who is likely to abuse vascular access device (eg, injection drug user) [A](7) [ ]X. Temperature greater than 104.9 degrees F (40.5 degrees C) (oral) [ ]XI. Inpatient admission required rather than observation care because of ANY ONE of the following: [ ]1) Specific infection identified that is too severe for outpatient treatment or observation care trial [ ]2) Metabolic disorder (eg, hypoglycemia, hyperglycemia, metabolic acidosis) that is severe or persistent [ ]3) Temperature greater than 103.1 degrees F (39.5 degrees C) ( oral) that is not responsive to observation care treatment [ ]4) IV fluid to replace significant ongoing (eg, for over 24 hours) losses (> 3 L/m2 per day) [ ]5) Supplemental oxygen or respiratory treatments for over 24 hours that is performable only in acute inpatient setting [ ]6) Parenteral nutrition regimen need that must be implemented on inpatient basis [ ]7) Strict or protective (eg, laminar flow) isolation [ ]8) Other condition, treatment or monitoring requiring inpatient admission Extended stay beyond goal length of stay may be needed for(1)(3) [ ]a) Sepsis or septic shock(22) [ ]b) Positive blood cultures [ ]c) Insufficient oral intake [ ]d) High-risk febrile neutropenia(29)(30) [ ]e) Continued fever and clinical instability [ ]f) Clinically active comorbid illness (e.g,heart failure, renal failure , diabetes) The original [employer] content created by [employer] has been revised. The portions of the content which have been revised are identified through the use of italic text or in bold, and [employer]ey [employer]o has neither reviewed nor approved the modified material. All other unmodified content is copyright [facility]. Please see references footnoted in the original [facility] edition 2016 Admission Criteria Met?: Yes MILADIS BARRIGA Jun 18, 2017 00:30
[2017-06-18] MEDS: IV NORMAL SALINE 1000ML BAG 1,000 ML IV SCH (00:59)
[2017-06-18] MEDS: oxyCODONE IR 5 MG TABLET PO PRN (01:43)
[2017-06-18] MEDS: MORPHINE SULFATE 2 MG/ML DISP.SYRIN. IV PRN (04:10)
[2017-06-18] MEDS: traMADol 50 MG TABLET PO PRN (04:51)
[2017-06-18] MEDS: PIPERACILLIN/TAZOBACTAM 4.5 GM in IV NORMAL SALINE 100ML 100 ML IV SCH ×5 (05:33→17:27)
[2017-06-18 06:23] LABS: BASO % 0 % (0-3); EOS % 0 % (0-3); HEMATOCRIT 23.9 % (36.0-47.0); LYMPH # 0.5 x10^3/uL (1.0-4.8); LYMPH % 3 % (24-48); MEAN CORPUSCULAR HEMOGLOBIN 29 pg (25-35); MEAN CORPUSCULAR HGB CONC 34 g/dL (31-37); MEAN CORPUSCULAR VOLUME 85 fL (79-100); MONO % 4 % (0-9); NEUT % 92 % (31-73); PLATELET COUNT 196 x10^3/uL (140-400); RED CELL DISTRIBUTION WIDTH 18.2 % (11.5-14.5); WHITE BLOOD COUNT 16.3 x10^3/uL (4.0-11.0)
[2017-06-18 06:50] LABS: % SAT IRON 6 % (15-34); IRON,SERUM 10 ug/dL (50-170)
[2017-06-18 07:00] LABS: CALCIUM 8.1 mg/dL (8.5-10.1); CREATININE 1.2 mg/dL (0.6-1.0); GFR 56.6; POTASSIUM 3.8 mmol/L (3.5-5.1)
[2017-06-18] MEDS: IPRATRPIUM/ALBUTEROL 0.5/2.5MG 3 ML NEBU. NEB SCH (07:46)
[2017-06-18] MEDS: INSULIN ASPART 300 UNITS/3 ML INSULN.PEN SQ SCH ×3 (08:00→17:00)
[2017-06-18] MEDS ORDERED: FERROUS SULFATE 325 MG TABLET. PO SCH (08:00)
--- NOTE | 2017-06-18 08:33 | PDOC ---
Infectious Disease Note Subjective Subjective pt is feeling better, rt leg is less tender ROS ROS GEN: Denies fevers, chills, sweats HEENT: Denies blurred vision, sore throat CV: Denies chest pain RESP: Denies shortness of air, cough GI: Denies n/v/d NEURO: Denies confusion, dizziness Vital Sign Vital Signs Vital Signs Date Time Temp Pulse Resp B/P (MAP) Pulse Ox O2 Delivery O2 Flow Rate FiO2 06/18/17 07:49 93 Room Air 06/18/17 06:00 119 27 116/65 (82) 06/18/17 04:00 99.2 99.2 Physical Exam PHYSICAL EXAM GENERAL: NAD, Alert HEENT: PERRL, OC/OP NECK: Supple, no JVD, no LN LUNGS: Clear HEART: S1S2, no gallop, no murmur ABD: Soft, NT, no organomegaly, no rebound EXT: No edema, no cyanosis [employer]ER[employer] RESEARCH ENGINEER: Alert, oriented x 3, no focal neurologic deficit SKIN: No rash, rt leg less tender, nina lower ext swelling and wounds+ IV: ok Labs Lab Laboratory Tests Test 06/17/17 09:00 06/17/17 12:15 06/17/17 17:05 06/17/17 20:03 Lactic Acid Level 1.2 mmol/L (0.4-2.0) Glucose (Fingerstick) 102 mg/dL (70-99) 97 mg/dL (70-99) Troponin I Quantitative 0.034 ng/mL (0.000-0.055) Test 06/18/17 02:00 06/18/17 05:45 Troponin I Quantitative 0.034 ng/mL (0.000-0.055) White Blood Count 16.3 x10^3/uL (4.0-11.0) Red Blood Count 2.80 x10^6/uL (3.50-5.40) Hemoglobin 8.0 g/dL (12.0-15.5) Hematocrit 23.9 % (36.0-47.0) Mean Corpuscular Volume 85 fL (79-100) Mean Corpuscular Hemoglobin 29 pg (25-35) Mean Corpuscular Hemoglobin Concent 34 g/dL (31-37) Red Cell Distribution Width 18.2 % (11.5-14.5) Platelet Count 196 x10^3/uL (140-400) Neutrophils (%) (Auto) 92 % (31-73) Lymphocytes (%) (Auto) 3 % (24-48) Monocytes (%) (Auto) 4 % (0-9) Eosinophils (%) (Auto) 0 % (0-3) Basophils (%) (Auto) 0 % (0-3) Neutrophils # (Auto) 15.0 x10^3uL (1.8-7.7) Lymphocytes # (Auto) 0.5 x10^3/uL (1.0-4.8) Monocytes # (Auto) 0.7 x10^3/uL (0.0-1.1) Eosinophils # (Auto) 0.0 x10^3/uL (0.0-0.7) Basophils # (Auto) 0.0 x10^3/uL (0.0-0.2) Sodium Level 138 mmol/L (136-145) Potassium Level 3.8 mmol/L (3.5-5.1) Chloride Level 103 mmol/L (98-107) Carbon Dioxide Level 25 mmol/L (21-32) Anion Gap 10 (6-14) Blood Urea Nitrogen 22 mg/dL (7-20) Creatinine 1.2 mg/dL (0.6-1.0) Estimated GFR (Cockcroft-Gault) 56.6 Glucose Level 117 mg/dL (70-99) Calcium Level 8.1 mg/dL (8.5-10.1) Iron Level 10 ug/dL (50-170) Total Iron Binding Capacity 160 ug/dL (250-450) Iron Saturation 6 % (15-34) Ferritin 746 ng/mL (8-252) Free Thyroxine 1.20 ng/dL (0.76-1.46) Micro BC neg Objective Assessment Fever Leukocytosis Rt leg wound Left foot wound Rt foot wound Obesity Plan Plan of Care cont antibiotics leg elevation pt/ot check culture from [facility] ISABEL JAVIER MD Jun 18, 2017 08:33
[2017-06-18 08:42] LABS: FOLATE 7.03 ng/ml (3.2-20.0)
[2017-06-18] MEDS ORDERED: MAGNESIUM HYDROXIDE 2,400 MG/30 ML ORAL.SUSP. PO PRN (09:00)
[2017-06-18] MEDS ORDERED: COLLAGENASE 250 UNIT/GM TOPICAL OINTMENT 30GM TUBE. TP SCH (09:00)
[2017-06-18] MEDS: HYDROCORTISONE 1% TOPICAL CREAM 30GM TUBE. TP SCH ×2 (09:00→21:00)
[2017-06-18] MEDS: PANTOPRAZOLE 40 MG TABLET.DR. PO SCH (09:03)
[2017-06-18] MEDS: ISOSORBIDE MONONITRATE ER 30 MG TAB.ER.24H PO SCH (09:03)
[2017-06-18] MEDS: ZINC SULFATE 220 MG CAPSULE. PO SCH (09:03)
[2017-06-18] MEDS: ASPIRIN ENTERIC COATED 81 MG TABLET.DR. PO SCH (09:03)
[2017-06-18] MEDS: LACTOBACILLUS ACIDOPH & BULGAR 1 TABLET. PO SCH (09:03)
[2017-06-18] MEDS: ASCORBIC ACID 500 MG TABLET PO SCH (09:03)
[2017-06-18] MEDS: SENNOSIDES/DOCUSATE 8.6/50MG TABLET. PO SCH ×2 (09:03→21:36)
[2017-06-18] MEDS ORDERED: SULFUR HEXAFLUORIDE MICROSPHR 25 MG VIAL. IVP ONE (09:34)
--- NOTE | 2017-06-18 10:12 | PDOC2 ---
CARDIAC CONSULT DATE OF CONSULT Date of Consult DATE: 06/18/17 TIME: 09:58 REASON FOR CONSULT Reason for Consult: Chest pain REFERRING PHYSICIAN Referring Physician: Dr. Castillo SOURCE Source: Chart review, Patient HISTORY OF PRESENT ILLNESS HISTORY OF PRESENT ILLNESS This is a 52 yo female who presented from nursing facility due to tachycardia, palpitations, and fevers. Patient reports having nausea and not feeling well over the weekend. Developed fever Friday. [facility] contacted nurse practitioner who recommended transfer to ED with concern for sepsis. Patient developed intermittent chest pain overnight, which prompted this consult. Onset near 1900. Located in her central chest. Describes as heaviness/pressure-like. No associated SOA, dizziness, diaphoresis, palpitations , or nausea/vomiting. No exacerbating or preceding factors. Pain improved with oxycodone. Brief recent history; patient has a history of chronic severe bilateral LE lymphedema. Has liposuction on lower extremity this past January. Developed PE following surgery in early March. Was started on Warfarin. Fell at home approximately 1 months ago. Developed right thigh hematoma. Treated at . Underwent evacuation of hematoma. Wound vac was placed. Started on Xarelto upon discharge from the hospital. Transferred to [facility] and eventually [facility] as patient was not ready to be discharged home alone. No prior history of cardiac disease or previous cardiac workup. PAST MEDICAL HISTORY Cardiovascular: HTN, Other (lymphedema ) Pulmonary: Other (PE) Heme/Onc: Anemia NOS Rheumatologic: No pertinent hx Infectious disease: No pertinent hx ENT: No pertinent hx Renal/: No pertinent hx Endocrine: Diabetes, Other (morbid obesity ) Dermatology: Other (right leg wound with wound vac, left foot wound) FAMILY HISTORY Family History: Hypertension SOCIAL HISTORY Smoke: No ALCOHOL: none CURRENT MEDICATIONS CURRENT MEDICATIONS Current Medications Medications (Trade) Dose Ordered Sig/Soledad Route PRN Reason Start Time Stop Time Status Last Admin Dose Admin Piperacillin Sod/ Tazobactam Sod 4.5 gm/Sodium Chloride 100 ml @ 200 mls/hr Q6HRS IV 06/17/17 12:00 06/18/17 09:04 Linezolid 300 ml @ 300 mls/hr Q12HR IV 06/17/17 21:00 06/18/17 09:04 Ascorbic Acid (Vitamin C) 500 mg DAILY PO 06/18/17 09:00 06/18/17 09:03 Aspirin (Ecotrin) 81 mg DAILY PO 06/18/17 09:00 06/18/17 09:03 Atorvastatin Calcium (Lipitor) 40 mg HS PO 06/17/17 21:00 06/17/17 20:34 Ferrous Sulfate (Feosol) 325 mg DAILY08 PO 06/18/17 08:00 06/18/17 09:03 Pantoprazole Sodium (Protonix) 40 mg DAILY07 PO 06/18/17 07:00 06/18/17 09:03 Senna/Docusate Sodium (Senna Plus) 1 tab BID PO 06/17/17 21:00 06/18/17 09:03 Zinc Sulfate (Orazinc) 220 mg DAILY PO 06/18/17 09:00 06/18/17 09:03 Isosorbide Mononitrate (Imdur) 60 mg DAILY PO 06/18/17 09:00 06/18/17 09:03 Lactobacillus Acidophilus (Bacid, [place]ron[place]-Bid) 1 tab DAILY PO 06/18/17 09:00 06/18/17 09:03 Oxycodone HCl (Roxicodone) 10 mg PRN Q4HRS PRN PO PAIN 06/17/17 14:15 06/18/17 01:43 Rivaroxaban (Xarelto) 20 mg DAILY@1700 PO 06/17/17 17:00 06/17/17 17:00 Ondansetron HCl (Zofran) 4 mg PRN Q6HRS PRN IV NAUSEA/VOMITING 06/17/17 13:30 06/18/17 08:47 Morphine Sulfate 2 mg PRN Q2HR PRN IV PAIN 06/17/17 13:30 06/18/17 04:10 Tramadol HCl (Ultram) 50 mg PRN Q6HRS PRN PO PAIN 06/17/17 13:30 06/18/17 04:51 ALLERGIES ALLERGIES: Coded Allergies: vancomycin (Verified Allergy, Intermediate, 06/17/17) ROS Review of System 14 point ROS conducted with pertinent positives noted above in HPI. PHYSICAL EXAM General: Alert, Oriented X3, Cooperative, No acute distress HEENT: Atraumatic Lungs: Other (diminished throughout) Heart: Regular rate, Normal S1, Normal S2, Other (distant heart tones ) Abdomen: Soft, No tenderness, Other (truncal obesity ) Extremities: No cyanosis, Other (significant, chronic LE lymphedema. right leg wound vac) Skin: Other (left foot wound- drsg intact ) Neuro: Normal speech, Sensation intact Psych/Mental Status: Mental status NL, Mood NL MUSCULOSKELETAL: Osteoarthritic changes both hands VITALS VITALS Vital Signs Date Time Temp Pulse Resp B/P (MAP) Pulse Ox O2 Delivery O2 Flow Rate FiO2 06/18/17 09:03 118 125/71 06/18/17 07:49 93 Room Air 06/18/17 06:00 27 06/18/17 04:00 99.2 99.2 LABS Lab: Laboratory Tests Test 06/17/17 12:15 06/17/17 17:05 06/17/17 20:03 06/18/17 02:00 Glucose (Fingerstick) 102 mg/dL (70-99) 97 mg/dL (70-99) Troponin I Quantitative 0.034 ng/mL (0.000-0.055) 0.034 ng/mL (0.000-0.055) Test 06/18/17 05:45 White Blood Count 16.3 x10^3/uL (4.0-11.0) Red Blood Count 2.80 x10^6/uL (3.50-5.40) Hemoglobin 8.0 g/dL (12.0-15.5) Hematocrit 23.9 % (36.0-47.0) Mean Corpuscular Volume 85 fL (79-100) Mean Corpuscular Hemoglobin 29 pg (25-35) Mean Corpuscular Hemoglobin Concent 34 g/dL (31-37) Red Cell Distribution Width 18.2 % (11.5-14.5) Platelet Count 196 x10^3/uL (140-400) Neutrophils (%) (Auto) 92 % (31-73) Lymphocytes (%) (Auto) 3 % (24-48) Monocytes (%) (Auto) 4 % (0-9) Eosinophils (%) (Auto) 0 % (0-3) Basophils (%) (Auto) 0 % (0-3) Neutrophils # (Auto) 15.0 x10^3uL (1.8-7.7) Lymphocytes # (Auto) 0.5 x10^3/uL (1.0-4.8) Monocytes # (Auto) 0.7 x10^3/uL (0.0-1.1) Eosinophils # (Auto) 0.0 x10^3/uL (0.0-0.7) Basophils # (Auto) 0.0 x10^3/uL (0.0-0.2) Sodium Level 138 mmol/L (136-145) Potassium Level 3.8 mmol/L (3.5-5.1) Chloride Level 103 mmol/L (98-107) Carbon Dioxide Level 25 mmol/L (21-32) Anion Gap 10 (6-14) Blood Urea Nitrogen 22 mg/dL (7-20) Creatinine 1.2 mg/dL (0.6-1.0) Estimated GFR (Cockcroft-Gault) 56.6 Glucose Level 117 mg/dL (70-99) Calcium Level 8.1 mg/dL (8.5-10.1) Iron Level 10 ug/dL (50-170) Total Iron Binding Capacity 160 ug/dL (250-450) Iron Saturation 6 % (15-34) Ferritin 746 ng/mL (8-252) Vitamin B12 Level 494 pg/mL (247-911) Serum Folate 7.03 ng/ml (3.2-20.0) Free Thyroxine 1.20 ng/dL (0.76-1.46) ASSESSMENT/PLAN ASSESSMENT/PLAN 1. Chest pain; atypical. Troponin series normal, AMI ruled out. on ASA. EKG without significant acute changes 2. Sinus tachycardia; likely reactive to acute infection, dehydration 3. H/o hypertension; hypotensive upon admission- improved with IVF. now stable 4. Diabetes; per PCP 5. Chronic LE lymphedema 6. Leukocytosis/fevers; culture obtained. Antibiotic therapy as per ID 7. Right left wound with wound vac 8. Hypothyroidism; TSH 7.770 9. Recent PE; on Xarelto Recommendations Echo to assess LV function/presence of WMA Check lipids. continue statin Supportive care Antibiotic therapy as per ID Further recommendations pending diagnostics. Problems: KAY IGNACIO APRN Jun 18, 2017 10:12
--- NOTE | 2017-06-18 12:21 | CARD ---
APPROVED REPORT EXAM: Two-dimensional and M-mode echocardiogram with Doppler and color Doppler. Other Information Quality : Average Rhythm : NSR INDICATION Chest Pain 2D DIMENSIONS Left Atrium(2D)3.6 (1.6-4.0cm)IVSd1.0 (0.7-1.1cm) Aortic Root(2D)2.1 (2.0-3.7cm)LVDd5.0 (3.9-5.9cm) LVOT Diameter1.9 (1.8-2.4cm)PWd1.0 (0.7-1.1cm) LVDs3.2 (2.5-4.0cm)FS (%) 34.9 % SV75.0 mlLVEF(%)64.0 (>50%) Aortic Valve AoV Peak Iftikhar.232.8cm/sAoV VTI35.4cm AO Peak GR.21.7mmHgLVOT VTI 19.20cm AO Mean GR.11mmHg Mitral Valve MV E Dfyhrqvn246.2cm/sMV E Peak Gr.9mmHg MV DECEL [id number] A [place]304.8cm/s MV NBL64npD/A Ratio1.0 MV A [id number] (PHT)3.55cm2 TDI Lateral E' P. V16.09cm/sMedial E' P. V11.84cm/s E/Lateral E'9.2E/Medial E'12.5 Tricuspid Valve TR P. Oacxcvml687jm/sRAP [id number] TR Peak Gr.15qaJcMFQG90ftBw LEFT VENTRICLE The left ventricle is normal size. There is normal left ventricular wall thickness. Left ventricle sy stolic function is normal. The Ejection Fraction is 55-60%. There is normal LV segmental wall motion. The left ventricular diastolic function and filling is normal for age. RIGHT VENTRICLE The right ventricle is normal size. The right ventricular systolic function is normal. ATRIA The left atrium size is normal. The right atrium size is normal. The interatrial septum is intact wit h no evidence for an atrial septal defect or patent foramen ovale as noted on 2-D or Doppler imaging. AORTIC VALVE The aortic valve is normal in structure and function. The aortic valve is trileaflet. Doppler and Col or Flow revealed no significant aortic regurgitation. There is no significant aortic valvular stenosi s. MITRAL VALVE The mitral valve is normal in structure and function. There is no mitral valve stenosis. Doppler and Color Flow revealed mild mitral regurgitation. TRICUSPID VALVE The tricuspid valve is not well visualized. Doppler and Color Flow revealed mild tricuspid regurgitat ion. The PA pressure was estimated at 40 mmHg. There is no tricuspid valve stenosis. PULMONIC VALVE The pulmonic valve is not well visualized. Doppler and Color Flow revealed no pulmonic valvular regur gitation. There is no pulmonic valvular stenosis. GREAT VESSELS The aortic root is normal in size. Pulmonary veins not recorded. The IVC is dilated and collapses >50 % with inspiration. PERICARDIAL EFFUSION There is no evidence of significant pericardial effusion. Critical Notification Critical Value: No <Conclusion> The left ventricle is normal size. Left ventricle systolic function is normal. The Ejection Fraction is 55-60%. There is no significant aortic valvular stenosis. Doppler and Color Flow revealed no significant aortic regurgitation. Doppler and Color Flow revealed mild mitral regurgitation. Doppler and Color Flow revealed mild tricuspid regurgitation. The PA pressure was estimated at 40 mmHg. There is no evidence of significant pericardial effusion.
--- NOTE | 2017-06-18 12:59 | PDOC ---
PROGRESS NOTES Chief Complaint Chief Complaint sepsis 2/2 right leg cellulitis possibly recent fall with right thigh hematoma s/p evacuation, liposuction with wound vac on dm2 htn chronic anemia h/o PE on xarelto bl leg severe lymphedema morbid obesity CKD3 MOderate malnutrition hypotension with septic shock chest pain, need to rule out unstable angina plan: fu with ID on zosyn, zovox, fu bcx cont home meds ptot wound care with wound vac ssi on xarelto anemia work up Echo as per card, basically ok , EF 55% mild PHTN, WITH slightly high Troponin, demanding ischemia ? with tach and anemia ok transfer out of icu History of Present Illness History of Present Illness chest pain last night, had it before, but more frequent last night, pressure like, substernal, troponin slightly higher today no fever wbc slightly better Vitals Vitals Vital Signs Date Time Temp Pulse Resp B/P (MAP) Pulse Ox O2 Delivery O2 Flow Rate FiO2 06/18/17 12:03 93 Room Air 06/18/17 09:03 118 125/71 06/18/17 06:00 27 06/18/17 04:00 99.2 99.2 Physical Exam General: Alert, Oriented X3, Cooperative Heart: Regular rate, Normal S1, Normal S2 Lungs: Clear Abdomen: Normal bowel sounds, Soft Extremities: Other (bl lower ext severe chronic lymphedema with right thigh vac on, and some right leg more wollen) Labs LABS Laboratory Tests Test 06/17/17 17:05 06/17/17 20:03 06/18/17 02:00 06/18/17 05:45 Glucose (Fingerstick) 97 mg/dL (70-99) Troponin I Quantitative 0.034 ng/mL (0.000-0.055) 0.034 ng/mL (0.000-0.055) White Blood Count 16.3 x10^3/uL (4.0-11.0) Red Blood Count 2.80 x10^6/uL (3.50-5.40) Hemoglobin 8.0 g/dL (12.0-15.5) Hematocrit 23.9 % (36.0-47.0) Mean Corpuscular Volume 85 fL (79-100) Mean Corpuscular Hemoglobin 29 pg (25-35) Mean Corpuscular Hemoglobin Concent 34 g/dL (31-37) Red Cell Distribution Width 18.2 % (11.5-14.5) Platelet Count 196 x10^3/uL (140-400) Neutrophils (%) (Auto) 92 % (31-73) Lymphocytes (%) (Auto) 3 % (24-48) Monocytes (%) (Auto) 4 % (0-9) Eosinophils (%) (Auto) 0 % (0-3) Basophils (%) (Auto) 0 % (0-3) Neutrophils # (Auto) 15.0 x10^3uL (1.8-7.7) Lymphocytes # (Auto) 0.5 x10^3/uL (1.0-4.8) Monocytes # (Auto) 0.7 x10^3/uL (0.0-1.1) Eosinophils # (Auto) 0.0 x10^3/uL (0.0-0.7) Basophils # (Auto) 0.0 x10^3/uL (0.0-0.2) Sodium Level 138 mmol/L (136-145) Potassium Level 3.8 mmol/L (3.5-5.1) Chloride Level 103 mmol/L (98-107) Carbon Dioxide Level 25 mmol/L (21-32) Anion Gap 10 (6-14) Blood Urea Nitrogen 22 mg/dL (7-20) Creatinine 1.2 mg/dL (0.6-1.0) Estimated GFR (Cockcroft-Gault) 56.6 Glucose Level 117 mg/dL (70-99) Calcium Level 8.1 mg/dL (8.5-10.1) Iron Level 10 ug/dL (50-170) Total Iron Binding Capacity 160 ug/dL (250-450) Iron Saturation 6 % (15-34) Ferritin 746 ng/mL (8-252) Vitamin B12 Level 494 pg/mL (247-911) Serum Folate 7.03 ng/ml (3.2-20.0) Free Thyroxine 1.20 ng/dL (0.76-1.46) Test 06/18/17 10:00 06/18/17 12:23 Troponin I Quantitative 0.124 ng/mL (0.000-0.055) Glucose (Fingerstick) 131 mg/dL (70-99) Review of Systems Review of Systems no fever, chills, sob or chest pain Comment Review of Relevant I have reviewed the following items demetrius (where applicable) has been applied. Labs Laboratory Tests Test 06/17/17 03:48 06/17/17 05:32 06/17/17 07:45 06/17/17 08:29 White Blood Count 17.5 x10^3/uL (4.0-11.0) Red Blood Count 2.70 x10^6/uL (3.50-5.40) Hemoglobin 7.6 g/dL (12.0-15.5) Hematocrit 23.3 % (36.0-47.0) Mean Corpuscular Volume 87 fL (79-100) Mean Corpuscular Hemoglobin 28 pg (25-35) Mean Corpuscular Hemoglobin Concent 33 g/dL (31-37) Red Cell Distribution Width 17.9 % (11.5-14.5) Platelet Count 209 x10^3/uL (140-400) Neutrophils (%) (Auto) 94 % (31-73) Lymphocytes (%) (Auto) 3 % (24-48) Monocytes (%) (Auto) 2 % (0-9) Eosinophils (%) (Auto) 0 % (0-3) Basophils (%) (Auto) 0 % (0-3) Neutrophils # (Auto) 16.5 x10^3uL (1.8-7.7) Lymphocytes # (Auto) 0.5 x10^3/uL (1.0-4.8) Monocytes # (Auto) 0.4 x10^3/uL (0.0-1.1) Eosinophils # (Auto) 0.0 x10^3/uL (0.0-0.7) Basophils # (Auto) 0.0 x10^3/uL (0.0-0.2) Segmented Neutrophils % 66 % (35-66) Band Neutrophils % 26 % (0-9) Lymphocytes % 6 % (24-48) Monocytes % 2 % (0-10) Toxic Vacuolation Present Platelet Estimate Adequate (ADEQUATE) Sodium Level 137 mmol/L (136-145) Potassium Level 3.9 mmol/L (3.5-5.1) Chloride Level 101 mmol/L (98-107) Carbon Dioxide Level 27 mmol/L (21-32) Anion Gap 9 (6-14) Blood Urea Nitrogen 24 mg/dL (7-20) Creatinine 1.3 mg/dL (0.6-1.0) Estimated GFR (Cockcroft-Gault) 51.6 Glucose Level 110 mg/dL (70-99) Lactic Acid Level 1.5 mmol/L (0.4-2.0) Calcium Level 8.4 mg/dL (8.5-10.1) Total Bilirubin 0.6 mg/dL (0.2-1.0) Direct Bilirubin 0.2 mg/dL (0.0-0.2) Aspartate Amino Transf (AST/SGOT) 27 U/L (15-37) Alanine Aminotransferase (ALT/SGPT) 17 U/L (14-59) Alkaline Phosphatase 83 U/L (46-116) Troponin I Quantitative < 0.017 ng/mL (0.000-0.055) OQ-Bbz-U-Type Natriuretic Peptide 3236 pg/mL (0-124) Total Protein 6.7 g/dL (6.4-8.2) Albumin 2.0 g/dL (3.4-5.0) Thyroid Stimulating Hormone (TSH) 7.770 uIU/mL (0.358-3.74) Urine Collection Type U cath Urine Color Ani Urine Clarity Cloudy Urine pH 5.5 Urine Specific [place] 1.025 Urine Protein Negative mg/dL (NEG-TRACE) Urine Glucose (UA) Negative mg/dL (NEG) Urine Ketones (Stick) Negative mg/dL (NEG) Urine Blood Negative (NEG) Urine Nitrite Negative (NEG) Urine Bilirubin Small (NEG) Urine Urobilinogen Dipstick 0.2 mg/dL (0.2 mg/dL) Urine Leukocyte Esterase Small (NEG) Urine RBC 0 /HPF (0-2) Urine WBC Occ /HPF (0-4) Urine Squamous Epithelial Cells Mod /LPF Urine Amorphous Sediment Present /HPF Urine Bacteria 0 /HPF (0-FEW) Urine Opiates Screen Pos (NEG) Urine Methadone Screen Neg (NEG) Urine Barbiturates Neg (NEG) Urine Phencyclidine Screen Neg (NEG) Urine Amphetamine/Methamphetamine Neg (NEG) Urine Benzodiazepines Screen Neg (NEG) Urine Cocaine Screen Neg (NEG) Urine Cannabinoids Screen Neg (NEG) Urine Ethyl Alcohol Neg (NEG) Nasal Screen MRSA (PCR) Negative (Negative) Glucose (Fingerstick) 103 mg/dL (70-99) Test 06/17/17 09:00 06/17/17 12:15 06/17/17 17:05 06/17/17 20:03 Lactic Acid Level 1.2 mmol/L (0.4-2.0) Glucose (Fingerstick) 102 mg/dL (70-99) 97 mg/dL (70-99) Troponin I Quantitative 0.034 ng/mL (0.000-0.055) Test 06/18/17 02:00 06/18/17 05:45 06/18/17 10:00 06/18/17 12:23 Troponin I Quantitative 0.034 ng/mL (0.000-0.055) 0.124 ng/mL (0.000-0.055) White Blood Count 16.3 x10^3/uL (4.0-11.0) Red Blood Count 2.80 x10^6/uL (3.50-5.40) Hemoglobin 8.0 g/dL (12.0-15.5) Hematocrit 23.9 % (36.0-47.0) Mean Corpuscular Volume 85 fL (79-100) Mean Corpuscular Hemoglobin 29 pg (25-35) Mean Corpuscular Hemoglobin Concent 34 g/dL (31-37) Red Cell Distribution Width 18.2 % (11.5-14.5) Platelet Count 196 x10^3/uL (140-400) Neutrophils (%) (Auto) 92 % (31-73) Lymphocytes (%) (Auto) 3 % (24-48) Monocytes (%) (Auto) 4 % (0-9) Eosinophils (%) (Auto) 0 % (0-3) Basophils (%) (Auto) 0 % (0-3) Neutrophils # (Auto) 15.0 x10^3uL (1.8-7.7) Lymphocytes # (Auto) 0.5 x10^3/uL (1.0-4.8) Monocytes # (Auto) 0.7 x10^3/uL (0.0-1.1) Eosinophils # (Auto) 0.0 x10^3/uL (0.0-0.7) Basophils # (Auto) 0.0 x10^3/uL (0.0-0.2) Sodium Level 138 mmol/L (136-145) Potassium Level 3.8 mmol/L (3.5-5.1) Chloride Level 103 mmol/L (98-107) Carbon Dioxide Level 25 mmol/L (21-32) Anion Gap 10 (6-14) Blood Urea Nitrogen 22 mg/dL (7-20) Creatinine 1.2 mg/dL (0.6-1.0) Estimated GFR (Cockcroft-Gault) 56.6 Glucose Level 117 mg/dL (70-99) Calcium Level 8.1 mg/dL (8.5-10.1) Iron Level 10 ug/dL (50-170) Total Iron Binding Capacity 160 ug/dL (250-450) Iron Saturation 6 % (15-34) Ferritin 746 ng/mL (8-252) Vitamin B12 Level 494 pg/mL (247-911) Serum Folate 7.03 ng/ml (3.2-20.0) Free Thyroxine 1.20 ng/dL (0.76-1.46) Glucose (Fingerstick) 131 mg/dL (70-99) Laboratory Tests Test 06/17/17 17:05 06/17/17 20:03 06/18/17 02:00 06/18/17 05:45 Glucose (Fingerstick) 97 mg/dL (70-99) Troponin I Quantitative 0.034 ng/mL (0.000-0.055) 0.034 ng/mL (0.000-0.055) White Blood Count 16.3 x10^3/uL (4.0-11.0) Red Blood Count 2.80 x10^6/uL (3.50-5.40) Hemoglobin 8.0 g/dL (12.0-15.5) Hematocrit 23.9 % (36.0-47.0) Mean Corpuscular Volume 85 fL (79-100) Mean Corpuscular Hemoglobin 29 pg (25-35) Mean Corpuscular Hemoglobin Concent 34 g/dL (31-37) Red Cell Distribution Width 18.2 % (11.5-14.5) Platelet Count 196 x10^3/uL (140-400) Neutrophils (%) (Auto) 92 % (31-73) Lymphocytes (%) (Auto) 3 % (24-48) Monocytes (%) (Auto) 4 % (0-9) Eosinophils (%) (Auto) 0 % (0-3) Basophils (%) (Auto) 0 % (0-3) Neutrophils # (Auto) 15.0 x10^3uL (1.8-7.7) Lymphocytes # (Auto) 0.5 x10^3/uL (1.0-4.8) Monocytes # (Auto) 0.7 x10^3/uL (0.0-1.1) Eosinophils # (Auto) 0.0 x10^3/uL (0.0-0.7) Basophils # (Auto) 0.0 x10^3/uL (0.0-0.2) Sodium Level 138 mmol/L (136-145) Potassium Level 3.8 mmol/L (3.5-5.1) Chloride Level 103 mmol/L (98-107) Carbon Dioxide Level 25 mmol/L (21-32) Anion Gap 10 (6-14) Blood Urea Nitrogen 22 mg/dL (7-20) Creatinine 1.2 mg/dL (0.6-1.0) Estimated GFR (Cockcroft-Gault) 56.6 Glucose Level 117 mg/dL (70-99) Calcium Level 8.1 mg/dL (8.5-10.1) Iron Level 10 ug/dL (50-170) Total Iron Binding Capacity 160 ug/dL (250-450) Iron Saturation 6 % (15-34) Ferritin 746 ng/mL (8-252) Vitamin B12 Level 494 pg/mL (247-911) Serum Folate 7.03 ng/ml (3.2-20.0) Free Thyroxine 1.20 ng/dL (0.76-1.46) Test 06/18/17 10:00 06/18/17 12:23 Troponin I Quantitative 0.124 ng/mL (0.000-0.055) Glucose (Fingerstick) 131 mg/dL (70-99) Microbiology 06/17/17 Blood Culture - Preliminary, Resulted NO GROWTH AFTER 1 DAY Medications Current Medications Sodium Chloride 1,000 ml @ 4,770 mls/hr Q13M IV Last administered on t 05:52; Start 06/17/17 at 05:00; Stop 06/17/17 at 06:00; Status DC Fentanyl Citrate (Fentanyl 2ml Vial) 25 mcg PRN Q15MIN PRN IV PAIN GREATER THAN 3/10 Last administered on 06/17/17 16:04; Start 06/17/17 at 04:00; Stop at 03:59; Status DC Piperacillin Sod/ Tazobactam Sod (Zosyn Per Pharmacy) 1 each PRN DAILY PRN MC SEE COMMENTS; Start 06/17/17 at 05:00; Stop 06/17/17 at 11:14; Status DC Vancomycin HCl (Vanco Per Pharmacy) 1 each PRN DAILY PRN MC SEE COMMENTS; Start 06/17/17 at 04:30; Stop 06/17/17 at 04:43; Status DC Clindamycin Phosphate 50 ml @ 100 mls/hr Q8HRS IV ; Start 06/17/17 at 14:00; Stop 06/17/17 at 14:00; Status DC Clindamycin Phosphate 50 ml @ 100 mls/hr 1X ONCE IV Last administered on 06/17 05:43; Start 06/17/17 at 05:00; Stop 06/17/17 at 05:29; Status DC Piperacillin Sod/ Tazobactam Sod 4.5 gm/Sodium Chloride 100 ml @ 200 mls/hr 1X ONCE IV Last administered on 06/17/17 05:43; Start 06/17/17 at 05:30; Stop 06/17/17 at 05:59; Status DC Ondansetron HCl (Zofran) 4 mg STK-MED ONCE .ROUTE ; Start 06/17/17 at 05:33; Stop 06/17/17 at 05:34; Status DC Ondansetron HCl (Zofran) 4 mg 1X ONCE IV Last administered on 06/17/17 05:38 ; Start 06/17/17 at 06:00; Stop 06/17/17 at 06:01; Status DC Piperacillin Sod/ Tazobactam Sod 4.5 gm/Sodium Chloride 100 ml @ 200 mls/hr Q6HRS IV Last administered on 06/18/17 09:04; Start 06/17/17 at 12:00 Ondansetron HCl (Zofran) 4 mg PRN Q8HRS PRN IV NAUSEA/VOMITING Last administered on 06/17/17 17:38; Start 06/17/17 at 06:30; Stop 06/18/17 at 06:29 ; Status DC Fentanyl Citrate (Fentanyl 2ml Vial) 50 mcg PRN Q1HR PRN IV PAIN; Start at 06:30; Stop 06/18/17 at 06:29; Status DC Sodium Chloride 1,000 ml @ 100 mls/hr Q10H IV Last administered on 06/18/17 00:59; Start 06/17/17 at 06:30; Stop 06/18/17 at 06:29; Status DC Acetaminophen (Tylenol) 650 mg PRN Q4HRS PRN PO FEVER Last administered on 06/17 23:59; Start 06/17/17 at 06:30; Stop 06/18/17 at 06:29; Status DC Albuterol/ Ipratropium (Duoneb) 3 ml RTQID NEB Last administered on 06/18/17 07:46; Start 06/17/17 at 08:00; Stop 06/18/17 at 07:59; Status DC Insulin Aspart (NovoLOG) 0-5 UNITS TIDWMEALS SQ ; Start 06/17/17 at 08:00 Dextrose (Dextrose 50%-Water Syringe) 12.5 gm PRN Q15MIN PRN IV SEE COMMENTS; Start 06/17/17 at 06:30 Linezolid 300 ml @ 300 mls/hr Q12HR IV Last administered on 06/18/17 09:04; Start 06/17/17 at 21:00 Acetaminophen (Tylenol) 325 mg PRN Q6HRS PRN PO PAIN; Start 06/17/17 at 13:30; Stop 06/17/17 at 13:31; Status DC Ascorbic Acid (Vitamin C) 500 mg DAILY PO Last administered on 06/18/17 09:03 ; Start 06/18/17 at 09:00 Aspirin (Ecotrin) 81 mg DAILY PO Last administered on 06/18/17 09:03; Start at 09:00 Atorvastatin Calcium (Lipitor) 40 mg HS PO Last administered on 06/17/17 20:34 ; Start 06/17/17 at 21:00 Bisacodyl (Dulcolax Supp) 10 mg PRN DAILY PRN RC constipation; Start 06/17/17 at 13:30 Collagenase (Santyl) 1 jocy DAILY TP ; Start 06/18/17 at 09:00; Status UNV Ferrous Sulfate (Feosol) 325 mg DAILY08 PO Last administered on 06/18/17 09:03 ; Start 06/18/17 at 08:00; Stop 06/18/17 at 10:30; Status DC Furosemide (Lasix) 20 mg QODAY PO ; Start 06/19/17 at 09:00 Hydroxyzine Pamoate (Vistaril) 25 mg PRN TID PRN PO ITCHING; Start 06/17/17 at 13:30 Magnesium Hydroxide (Milk Of Magnesia) 400 mg PRN DAILY PRN PO CONSTIPATION; Start 06/18/17 at 09:00 Pantoprazole Sodium (Protonix) 40 mg DAILY07 PO Last administered on 06/18/17 09:03; Start 06/18/17 at 07:00 Senna/Docusate Sodium (Senna Plus) 1 tab BID PO Last administered on 06/18/17 09:03; Start 06/17/17 at 21:00 Zinc Sulfate (Orazinc) 220 mg DAILY PO Last administered on 06/18/17 09:03; Start 06/18/17 at 09:00 Hydrocortisone (Cortaid) 1 jocy BID TP ; Start 06/17/17 at 21:00 Isosorbide Mononitrate (Imdur) 60 mg DAILY PO Last administered on 06/18/17 09 :03; Start 06/18/17 at 09:00 Lactobacillus Acidophilus (Bacid, [place]-Bid) 1 tab DAILY PO Last administered on 06/18/17 09:03; Start 06/18/17 at 09:00 Oxycodone HCl (Roxicodone) 10 mg PRN Q4HRS PRN PO PAIN Last administered on 01:43; Start 06/17/17 at 14:15 Rivaroxaban (Xarelto) 20 mg DAILY@1700 PO Last administered on 06/17/17 17:00 ; Start 06/17/17 at 17:00 Acetaminophen (Tylenol) 650 mg PRN Q6HRS PRN PO FEVER; Start 06/17/17 at 13:30 Ondansetron HCl (Zofran) 4 mg PRN Q6HRS PRN IV NAUSEA/VOMITING Last administered on 06/18/17 08:47; Start 06/17/17 at 13:30 Morphine Sulfate 2 mg PRN Q2HR PRN IV PAIN Last administered on 06/18/17 04:10 ; Start 06/17/17 at 13:30 Tramadol HCl (Ultram) 50 mg PRN Q6HRS PRN PO PAIN Last administered on 04:51; Start 06/17/17 at 13:30 Hydralazine HCl (Apresoline) 10 mg PRN Q4HRS PRN IVP ELEVATED BP, SEE COMMENTS ; Start 06/17/17 at 13:30 Docusate Sodium (Colace) 100 mg PRN DAILY PRN PO CONSTIPATION; Start 06/17/17 at 13:30 Info (Anti-Coagulation Monitoring By Pharmacy) 1 each PRN DAILY PRN MC SEE COMMENTS; Start 06/17/17 at 14:15 Sulfur Hexafluoride Microspheres (Lumason) 25 mg STK-MED ONCE IVP ; Start at 09:34; Stop 06/18/17 at 09:35; Status DC Ferrous Sulfate (Feosol) 325 mg BIDWMEALS PO ; Start 06/18/17 at 17:00 Active Scripts Active Reported Cleocin 600 [id number] (Clindamycin Phosphate/D5w) 600 Mg/50 Ml Piggyback 600 Mg IV Q8 Piperacil-Tazobact 3.375 Gm Vl (Piperacillin Sodium/Tazobactam) 3.375 Gm Vial 3.375 Gm IV Q8HRS Acidophilus Probiotic Tablet (Lactobacillus Acidophilus/Fos) 1 Each Tablet 1 Each PO BID Bisacodyl 10 Mg/30 Ml Enema 10 Mg RC PRN DAILY PRN Bisacodyl 10 Mg Supp.rect 10 Mg RC PRN DAILY PRN Hydrocortisone 453.6 Gm Cream..g. 1 Jocy TP BID Multi-Day Vitamins (Multivitamin) 1 Each Tablet 1 Tab PO DAILY Santyl Ointment (Collagenase) 30 Gm Oint...g. 1 Jocy TP DAILY DIRECTED BY PHYSICIAN Acetaminophen 325 Mg Tablet 325 Mg PO Q6HRS PRN Milk Of Magnesia (Magnesium Hydroxide) 400 Mg/5 Ml Oral.susp 400 Mg PO DAILY PRN Milk Of Magnesia (Magnesium Hydroxide) 400 Mg/5 Ml Oral.susp 400 Mg PO DAILY Hydroxyzine Pamoate 25 Mg Capsule 25 Mg PO TID PRN Oxycodone Hcl 10 Mg Tablet 10 Mg PO Q4HRS PRN Acidophilus (Lactobacillus Acidophilus) 1 Each Capsule 1 Each PO BID Senna Plus Tablet (Sennosides/Docusate Sodium) 1 Each Tablet 1 Each PO BID Atorvastatin Calcium 40 Mg Tablet 40 Mg PO HS Ascorbic Acid 500 Mg Tablet 500 Mg PO DAILY Isosorbide Mononitrate Er (Isosorbide Mononitrate) 60 Mg Tab.er.24h 1 Tab PO DAILY Zinc Sulfate 220 Mg Capsule 220 Mg PO DAILY Aspir 81 (Aspirin) 81 Mg Tablet.dr 1 Tab PO DAILY Ferrous Sulfate 325 Mg Tablet 1 Tab PO DAILY Pantoprazole Sodium 40 Mg Tablet.dr 1 Tab PO DAILY Miralax (Polyethylene Glycol 3350) 17 Gm Powd.pack 1 Packet PO DAILY PRN Eucerin Creme (Mineral Oil/White Petrolatum) 120 Gm Cream..g. 1 Jocy TP BID Xarelto (Rivaroxaban) 20 Mg Tablet 20 Mg PO DAILY Furosemide 20 Mg Tablet 1 Tab PO QODAY Vitals/I & O Vital Sign - Last 24 Hours 06/17/17 06/17/17 06/17/17 06/17/17 16:00 16:04 16:15 16:45 Resp 20 22 Pulse Ox 96 97 97 O2 Delivery Room Air Room Air Room Air Room Air 06/17/17 06/17/17 06/17/17 06/17/17 17:00 18:00 18:11 19:00 Pulse 117 118 Resp 24 20 20 18 B/P (MAP) 85/63 (70) 96/57 (70) Pulse Ox 97 97 94 O2 Delivery Room Air Room Air Room Air 06/17/17 06/17/17 06/17/17 06/17/17 19:40 19:55 20:00 20:00 Temp 99.0 99.0 Pulse 118 Resp 28 25 B/P (MAP) 97/46 (63) Pulse Ox 100 96 95 O2 Delivery Room Air Room Air Room Air Room Air 06/17/17 06/17/17 06/17/17 06/17/17 20:52 21:00 22:00 22:25 Pulse 120 120 Resp 12 30 B/P (MAP) 116/69 (85) 112/54 (73) Pulse Ox 99 95 O2 Delivery Room Air Room Air Room Air Room Air 06/17/17 06/18/17 06/18/17 06/18/17 23:00 00:00 00:00 01:00 Temp 100.6 100.6 Pulse 122 122 118 Resp 30 12 14 B/P (MAP) 116/50 (72) 80/53 (62) 116/63 (80) Pulse Ox 94 94 94 O2 Delivery Room Air Room Air Room Air Room Air 06/18/17 06/18/17 06/18/17 06/18/17 01:43 02:00 03:00 03:30 Pulse 120 119 Resp 27 28 B/P (MAP) 114/55 (74) 124/62 (82) Pulse Ox 98 95 94 98 O2 Delivery Room Air Room Air Room Air Room Air 06/18/17 06/18/17 06/18/17 06/18/17 04:00 04:00 04:10 04:51 Temp 99.2 99.2 Pulse 120 Resp 27 B/P (MAP) Pulse Ox 92 93 96 O2 Delivery Room Air Room Air Room Air Room Air 06/18/17 06/18/17 06/18/17 06/18/17 04:51 05:00 06:00 07:00 Pulse 118 119 Resp 16 26 27 B/P (MAP) 125/64 (84) 116/65 (82) Pulse Ox 96 95 93 93 O2 Delivery Room Air Room Air Room Air Room Air 06/18/17 06/18/17 06/18/17 07:49 09:03 12:03 Pulse 118 B/P (MAP) 125/71 Pulse Ox 93 93 O2 Delivery Room Air Room Air Intake and Output 06/17/17 06/17/17 06/18/17 15:00 23:00 07:00 Intake Total 1620 ml 300 ml 1527 ml Output Total 510 ml 461 ml 338 ml Balance 1110 ml -161 ml 1189 ml Nutrition Consultation Dietary Evaluation: Recommendations by RD: Dietary education by RD Comments: Provided education handouts on general healthy eating, label reading and portion control. Discussed Expected Outcomes/Goals: meet 75% estimated nutrition needs Malnutrition Findings: Malnutrition related to morbid: No Weight Status: Morbidly Obese JONATHAN SOTO MD Jun 18, 2017 12:59
[2017-06-18] MEDS: FERROUS SULFATE 325 MG TABLET. PO SCH (17:27)
[2017-06-18] MEDS: RIVAROXABAN 10 MG TABLET. PO SCH (17:27)
[2017-06-18] MEDS: ATORVASTATIN CALCIUM 40 MG TABLET. PO SCH (21:36)
[2017-06-19 02:21] VITALS: BP 96/58
[2017-06-19] MEDS: PIPERACILLIN/TAZOBACTAM 4.5 GM in IV NORMAL SALINE 100ML 100 ML IV SCH ×3 (05:03)
[2017-06-19 05:10] LABS: BASO # 0.1 x10^3/uL (0.0-0.2); BASO % 0 % (0-3); EOS % 1 % (0-3); HEMATOCRIT 21.7 % (36.0-47.0); HEMOGLOBIN 7.1 g/dL (12.0-15.5); LYMPH % 7 % (24-48); MEAN CORPUSCULAR HEMOGLOBIN 28 pg (25-35); MEAN CORPUSCULAR HGB CONC 33 g/dL (31-37); MEAN CORPUSCULAR VOLUME 86 fL (79-100); MONO % 5 % (0-9); NEUT % 87 % (31-73); PLATELET COUNT 190 x10^3/uL (140-400); RED BLOOD COUNT 2.53 x10^6/uL (3.50-5.40); WHITE BLOOD COUNT 14.9 x10^3/uL (4.0-11.0)
[2017-06-19] MEDS: oxyCODONE IR 5 MG TABLET PO PRN ×3 (05:12→14:28)
[2017-06-19 05:25] LABS: CALCIUM 7.8 mg/dL (8.5-10.1); GFR 69.9; POTASSIUM 3.7 mmol/L (3.5-5.1)
[2017-06-19 05:46] LABS: CHOLESTEROL/HDL RATIO 5.8
[2017-06-19 07:00] VITALS: BP 105/57
[2017-06-19] MEDS: PANTOPRAZOLE 40 MG TABLET.DR. PO SCH (07:12)
[2017-06-19] MEDS: INSULIN ASPART 300 UNITS/3 ML INSULN.PEN SQ SCH ×3 (08:00→17:00)
[2017-06-19] MEDS: ASPIRIN ENTERIC COATED 81 MG TABLET.DR. PO SCH (08:29)
[2017-06-19] MEDS: SENNOSIDES/DOCUSATE 8.6/50MG TABLET. PO SCH ×2 (08:29→20:53)
[2017-06-19] MEDS: ISOSORBIDE MONONITRATE ER 30 MG TAB.ER.24H PO SCH (08:30)
[2017-06-19] MEDS: ZINC SULFATE 220 MG CAPSULE. PO SCH (08:31)
[2017-06-19] MEDS: LACTOBACILLUS ACIDOPH & BULGAR 1 TABLET. PO SCH (08:31)
[2017-06-19] MEDS: FERROUS SULFATE 325 MG TABLET. PO SCH ×2 (08:31→17:26)
[2017-06-19] MEDS: ASCORBIC ACID 500 MG TABLET PO SCH (08:31)
--- NOTE | 2017-06-19 08:50 | PDOC ---
Infectious Disease Note Subjective Subjective pt is feeling better, rt leg is less tender ROS ROS GEN: Denies fevers, chills, sweats HEENT: Denies blurred vision, sore throat CV: Denies chest pain RESP: Denies shortness of air, cough GI: Denies n/v/d NEURO: Denies confusion, dizziness MSK: Denies weakness, joint pain/swelling Vital Sign Vital Signs Vital Signs Date Time Temp Pulse Resp B/P (MAP) Pulse Ox O2 Delivery O2 Flow Rate FiO2 06/19/17 08:30 107 105/57 06/19/17 07:00 98.2 20 93 Room Air 98.2 Physical Exam PHYSICAL EXAM GENERAL: NAD, Alert HEENT: PERRL, OC/OP NECK: Supple, no JVD, no LN LUNGS: Clear HEART: S1S2, no gallop, no murmur ABD: Soft, NT, no organomegaly, no rebound EXT: No edema, no cyanosis PERSONNEL GENERALIST MANAGER: Alert, oriented x 3, no focal neurologic deficit SKIN: No rash IV: ok Labs Lab Laboratory Tests Test 06/18/17 10:00 06/18/17 12:23 06/18/17 17:26 06/18/17 17:30 Troponin I Quantitative 0.124 ng/mL (0.000-0.055) 0.606 ng/mL (0.000-0.055) Glucose (Fingerstick) 131 mg/dL (70-99) 97 mg/dL (70-99) Test 06/18/17 21:19 06/19/17 05:00 06/19/17 07:44 Glucose (Fingerstick) 134 mg/dL (70-99) 114 mg/dL (70-99) White Blood Count 14.9 x10^3/uL (4.0-11.0) Red Blood Count 2.53 x10^6/uL (3.50-5.40) Hemoglobin 7.1 g/dL (12.0-15.5) Hematocrit 21.7 % (36.0-47.0) Mean Corpuscular Volume 86 fL (79-100) Mean Corpuscular Hemoglobin 28 pg (25-35) Mean Corpuscular Hemoglobin Concent 33 g/dL (31-37) Red Cell Distribution Width 18.0 % (11.5-14.5) Platelet Count 190 x10^3/uL (140-400) Neutrophils (%) (Auto) 87 % (31-73) Lymphocytes (%) (Auto) 7 % (24-48) Monocytes (%) (Auto) 5 % (0-9) Eosinophils (%) (Auto) 1 % (0-3) Basophils (%) (Auto) 0 % (0-3) Neutrophils # (Auto) 12.9 x10^3uL (1.8-7.7) Lymphocytes # (Auto) 1.0 x10^3/uL (1.0-4.8) Monocytes # (Auto) 0.8 x10^3/uL (0.0-1.1) Eosinophils # (Auto) 0.1 x10^3/uL (0.0-0.7) Basophils # (Auto) 0.1 x10^3/uL (0.0-0.2) Sodium Level 138 mmol/L (136-145) Potassium Level 3.7 mmol/L (3.5-5.1) Chloride Level 103 mmol/L (98-107) Carbon Dioxide Level 26 mmol/L (21-32) Anion Gap 9 (6-14) Blood Urea Nitrogen 17 mg/dL (7-20) Creatinine 1.0 mg/dL (0.6-1.0) Estimated GFR (Cockcroft-Gault) 69.9 Glucose Level 108 mg/dL (70-99) Calcium Level 7.8 mg/dL (8.5-10.1) Triglycerides Level 86 mg/dL (0-150) Cholesterol Level 69 mg/dL (0-200) LDL Cholesterol, Calculated 40 mg/dL (0-100) VLDL Cholesterol, Calculated 17 mg/dL (0-40) Non-HDL Cholesterol Calculated 57 mg/dL (0-129) HDL Cholesterol 12 mg/dL (40-60) Cholesterol/HDL Ratio 5.8 Micro BC neg Objective Assessment Fever Leukocytosis Rt leg wound Left foot wound Rt foot wound Obesity Plan Plan of Care cont antibiotics,, change to po zyvox and augmentin leg elevation pt/ot check culture from [facility] ISABEL JAVIER MD Jun 19, 2017 08:50
[2017-06-19] MEDS ORDERED: FUROSEMIDE 20 MG TABLET PO SCH (09:00)
--- NOTE | 2017-06-19 09:41 | PDOC ---
PROGRESS NOTES Chief Complaint Chief Complaint Chief complaint cellulitis Right leg cellulitis possible Leukocytosis Recent fall with right thigh hematoma Diabetes mellitus Morbid obesity BMI 75 Hypertension Chronic anemia History of pulmonary embolism on xaralto Bilateral Sever lower extremity lymphedema Chest pain with mild elevation of troponins Plan Continue current antibiotics on Augmentin and Zyvox Monitor WBC Continue home medications for diabetes and as needed sliding scale insulin Patient had episodes of hypertension and hypertension currently hemodynamically stable Continue oral anti-Coblation Cardiology and infectious disease has been following Wound care Echocardiogram reviewed no acute findings noted Labs reviewed blood cultures pending half-way prognosis guarded Physical therapy and occupational therapy History of Present Illness History of Present Illness No fever no chills no chest pain No complaints sitting in chair Vitals Vitals Vital Signs Date Time Temp Pulse Resp B/P (MAP) Pulse Ox O2 Delivery O2 Flow Rate FiO2 06/19/17 08:30 107 105/57 06/19/17 08:10 Room Air 06/19/17 07:00 98.2 20 93 98.2 Physical Exam General: Alert, Oriented X3, Cooperative, No acute distress Heart: Regular rate, Normal S1, Normal S2, Other (distant heart tones ) Lungs: Clear Abdomen: Soft, No tenderness, Other (truncal obesity ) Extremities: No cyanosis, Other (significant, chronic LE lymphedema. right leg wound vac) Skin: Other (left foot wound- drsg intact ) Labs LABS Laboratory Tests Test 06/18/17 10:00 06/18/17 12:23 06/18/17 17:26 06/18/17 17:30 Troponin I Quantitative 0.124 ng/mL (0.000-0.055) 0.606 ng/mL (0.000-0.055) Glucose (Fingerstick) 131 mg/dL (70-99) 97 mg/dL (70-99) Test 06/18/17 21:19 06/19/17 05:00 06/19/17 07:44 Glucose (Fingerstick) 134 mg/dL (70-99) 114 mg/dL (70-99) White Blood Count 14.9 x10^3/uL (4.0-11.0) Red Blood Count 2.53 x10^6/uL (3.50-5.40) Hemoglobin 7.1 g/dL (12.0-15.5) Hematocrit 21.7 % (36.0-47.0) Mean Corpuscular Volume 86 fL (79-100) Mean Corpuscular Hemoglobin 28 pg (25-35) Mean Corpuscular Hemoglobin Concent 33 g/dL (31-37) Red Cell Distribution Width 18.0 % (11.5-14.5) Platelet Count 190 x10^3/uL (140-400) Neutrophils (%) (Auto) 87 % (31-73) Lymphocytes (%) (Auto) 7 % (24-48) Monocytes (%) (Auto) 5 % (0-9) Eosinophils (%) (Auto) 1 % (0-3) Basophils (%) (Auto) 0 % (0-3) Neutrophils # (Auto) 12.9 x10^3uL (1.8-7.7) Lymphocytes # (Auto) 1.0 x10^3/uL (1.0-4.8) Monocytes # (Auto) 0.8 x10^3/uL (0.0-1.1) Eosinophils # (Auto) 0.1 x10^3/uL (0.0-0.7) Basophils # (Auto) 0.1 x10^3/uL (0.0-0.2) Sodium Level 138 mmol/L (136-145) Potassium Level 3.7 mmol/L (3.5-5.1) Chloride Level 103 mmol/L (98-107) Carbon Dioxide Level 26 mmol/L (21-32) Anion Gap 9 (6-14) Blood Urea Nitrogen 17 mg/dL (7-20) Creatinine 1.0 mg/dL (0.6-1.0) Estimated GFR (Cockcroft-Gault) 69.9 Glucose Level 108 mg/dL (70-99) Calcium Level 7.8 mg/dL (8.5-10.1) Triglycerides Level 86 mg/dL (0-150) Cholesterol Level 69 mg/dL (0-200) LDL Cholesterol, Calculated 40 mg/dL (0-100) VLDL Cholesterol, Calculated 17 mg/dL (0-40) Non-HDL Cholesterol Calculated 57 mg/dL (0-129) HDL Cholesterol 12 mg/dL (40-60) Cholesterol/HDL Ratio 5.8 Comment Review of Relevant I have reviewed the following items demetrius (where applicable) has been applied. Labs Laboratory Tests Test 06/17/17 12:15 06/17/17 17:05 06/17/17 20:03 06/18/17 02:00 Glucose (Fingerstick) 102 mg/dL (70-99) 97 mg/dL (70-99) Troponin I Quantitative 0.034 ng/mL (0.000-0.055) 0.034 ng/mL (0.000-0.055) Test 06/18/17 05:45 06/18/17 10:00 06/18/17 12:23 06/18/17 17:26 White Blood Count 16.3 x10^3/uL (4.0-11.0) Red Blood Count 2.80 x10^6/uL (3.50-5.40) Hemoglobin 8.0 g/dL (12.0-15.5) Hematocrit 23.9 % (36.0-47.0) Mean Corpuscular Volume 85 fL (79-100) Mean Corpuscular Hemoglobin 29 pg (25-35) Mean Corpuscular Hemoglobin Concent 34 g/dL (31-37) Red Cell Distribution Width 18.2 % (11.5-14.5) Platelet Count 196 x10^3/uL (140-400) Neutrophils (%) (Auto) 92 % (31-73) Lymphocytes (%) (Auto) 3 % (24-48) Monocytes (%) (Auto) 4 % (0-9) Eosinophils (%) (Auto) 0 % (0-3) Basophils (%) (Auto) 0 % (0-3) Neutrophils # (Auto) 15.0 x10^3uL (1.8-7.7) Lymphocytes # (Auto) 0.5 x10^3/uL (1.0-4.8) Monocytes # (Auto) 0.7 x10^3/uL (0.0-1.1) Eosinophils # (Auto) 0.0 x10^3/uL (0.0-0.7) Basophils # (Auto) 0.0 x10^3/uL (0.0-0.2) Sodium Level 138 mmol/L (136-145) Potassium Level 3.8 mmol/L (3.5-5.1) Chloride Level 103 mmol/L (98-107) Carbon Dioxide Level 25 mmol/L (21-32) Anion Gap 10 (6-14) Blood Urea Nitrogen 22 mg/dL (7-20) Creatinine 1.2 mg/dL (0.6-1.0) Estimated GFR (Cockcroft-Gault) 56.6 Glucose Level 117 mg/dL (70-99) Calcium Level 8.1 mg/dL (8.5-10.1) Iron Level 10 ug/dL (50-170) Total Iron Binding Capacity 160 ug/dL (250-450) Iron Saturation 6 % (15-34) Ferritin 746 ng/mL (8-252) Vitamin B12 Level 494 pg/mL (247-911) Serum Folate 7.03 ng/ml (3.2-20.0) Free Thyroxine 1.20 ng/dL (0.76-1.46) Troponin I Quantitative 0.124 ng/mL (0.000-0.055) Glucose (Fingerstick) 131 mg/dL (70-99) 97 mg/dL (70-99) Test 06/18/17 17:30 06/18/17 21:19 06/19/17 05:00 06/19/17 07:44 Troponin I Quantitative 0.606 ng/mL (0.000-0.055) Glucose (Fingerstick) 134 mg/dL (70-99) 114 mg/dL (70-99) White Blood Count 14.9 x10^3/uL (4.0-11.0) Red Blood Count 2.53 x10^6/uL (3.50-5.40) Hemoglobin 7.1 g/dL (12.0-15.5) Hematocrit 21.7 % (36.0-47.0) Mean Corpuscular Volume 86 fL (79-100) Mean Corpuscular Hemoglobin 28 pg (25-35) Mean Corpuscular Hemoglobin Concent 33 g/dL (31-37) Red Cell Distribution Width 18.0 % (11.5-14.5) Platelet Count 190 x10^3/uL (140-400) Neutrophils (%) (Auto) 87 % (31-73) Lymphocytes (%) (Auto) 7 % (24-48) Monocytes (%) (Auto) 5 % (0-9) Eosinophils (%) (Auto) 1 % (0-3) Basophils (%) (Auto) 0 % (0-3) Neutrophils # (Auto) 12.9 x10^3uL (1.8-7.7) Lymphocytes # (Auto) 1.0 x10^3/uL (1.0-4.8) Monocytes # (Auto) 0.8 x10^3/uL (0.0-1.1) Eosinophils # (Auto) 0.1 x10^3/uL (0.0-0.7) Basophils # (Auto) 0.1 x10^3/uL (0.0-0.2) Sodium Level 138 mmol/L (136-145) Potassium Level 3.7 mmol/L (3.5-5.1) Chloride Level 103 mmol/L (98-107) Carbon Dioxide Level 26 mmol/L (21-32) Anion Gap 9 (6-14) Blood Urea Nitrogen 17 mg/dL (7-20) Creatinine 1.0 mg/dL (0.6-1.0) Estimated GFR (Cockcroft-Gault) 69.9 Glucose Level 108 mg/dL (70-99) Calcium Level 7.8 mg/dL (8.5-10.1) Triglycerides Level 86 mg/dL (0-150) Cholesterol Level 69 mg/dL (0-200) LDL Cholesterol, Calculated 40 mg/dL (0-100) VLDL Cholesterol, Calculated 17 mg/dL (0-40) Non-HDL Cholesterol Calculated 57 mg/dL (0-129) HDL Cholesterol 12 mg/dL (40-60) Cholesterol/HDL Ratio 5.8 Laboratory Tests Test 06/18/17 10:00 06/18/17 12:23 06/18/17 17:26 06/18/17 17:30 Troponin I Quantitative 0.124 ng/mL (0.000-0.055) 0.606 ng/mL (0.000-0.055) Glucose (Fingerstick) 131 mg/dL (70-99) 97 mg/dL (70-99) Test 06/18/17 21:19 06/19/17 05:00 06/19/17 07:44 Glucose (Fingerstick) 134 mg/dL (70-99) 114 mg/dL (70-99) White Blood Count 14.9 x10^3/uL (4.0-11.0) Red Blood Count 2.53 x10^6/uL (3.50-5.40) Hemoglobin 7.1 g/dL (12.0-15.5) Hematocrit 21.7 % (36.0-47.0) Mean Corpuscular Volume 86 fL (79-100) Mean Corpuscular Hemoglobin 28 pg (25-35) Mean Corpuscular Hemoglobin Concent 33 g/dL (31-37) Red Cell Distribution Width 18.0 % (11.5-14.5) Platelet Count 190 x10^3/uL (140-400) Neutrophils (%) (Auto) 87 % (31-73) Lymphocytes (%) (Auto) 7 % (24-48) Monocytes (%) (Auto) 5 % (0-9) Eosinophils (%) (Auto) 1 % (0-3) Basophils (%) (Auto) 0 % (0-3) Neutrophils # (Auto) 12.9 x10^3uL (1.8-7.7) Lymphocytes # (Auto) 1.0 x10^3/uL (1.0-4.8) Monocytes # (Auto) 0.8 x10^3/uL (0.0-1.1) Eosinophils # (Auto) 0.1 x10^3/uL (0.0-0.7) Basophils # (Auto) 0.1 x10^3/uL (0.0-0.2) Sodium Level 138 mmol/L (136-145) Potassium Level 3.7 mmol/L (3.5-5.1) Chloride Level 103 mmol/L (98-107) Carbon Dioxide Level 26 mmol/L (21-32) Anion Gap 9 (6-14) Blood Urea Nitrogen 17 mg/dL (7-20) Creatinine 1.0 mg/dL (0.6-1.0) Estimated GFR (Cockcroft-Gault) 69.9 Glucose Level 108 mg/dL (70-99) Calcium Level 7.8 mg/dL (8.5-10.1) Triglycerides Level 86 mg/dL (0-150) Cholesterol Level 69 mg/dL (0-200) LDL Cholesterol, Calculated 40 mg/dL (0-100) VLDL Cholesterol, Calculated 17 mg/dL (0-40) Non-HDL Cholesterol Calculated 57 mg/dL (0-129) HDL Cholesterol 12 mg/dL (40-60) Cholesterol/HDL Ratio 5.8 Microbiology 06/17/17 Blood Culture - Preliminary, Resulted NO GROWTH AFTER 1 DAY 06/17/17 Urine Culture - Preliminary, Resulted 06/17/17 Urine Culture Result 1 (HUY) - Preliminary, Resulted Medications Current Medications Sodium Chloride 1,000 ml @ 4,770 mls/hr Q13M IV Last administered on 05:52; Start 06/17/17 at 05:00; Stop 06/17/17 at 06:00; Status DC Fentanyl Citrate (Fentanyl 2ml Vial) 25 mcg PRN Q15MIN PRN IV PAIN GREATER THAN 3/10 Last administered on 06/17/17 16:04; Start 06/17/17 at 04:00; Stop at 03:59; Status DC Piperacillin Sod/ Tazobactam Sod (Zosyn Per Pharmacy) 1 each PRN DAILY PRN MC SEE COMMENTS; Start 06/17/17 at 05:00; Stop 06/17/17 at 11:14; Status DC Vancomycin HCl (Vanco Per Pharmacy) 1 each PRN DAILY PRN MC SEE COMMENTS; Start 06/17/17 at 04:30; Stop 06/17/17 at 04:43; Status DC Clindamycin Phosphate 50 ml @ 100 mls/hr Q8HRS IV ; Start 06/17/17 at 14:00; Stop 06/17/17 at 14:00; Status DC Clindamycin Phosphate 50 ml @ 100 mls/hr 1X ONCE IV Last administered on 06/17 05:43; Start 06/17/17 at 05:00; Stop 06/17/17 at 05:29; Status DC Piperacillin Sod/ Tazobactam Sod 4.5 gm/Sodium Chloride 100 ml @ 200 mls/hr 1X ONCE IV Last administered on 06/17/17 05:43; Start 06/17/17 at 05:30; Stop 06/17/17 at 05:59; Status DC Ondansetron HCl (Zofran) 4 mg STK-MED ONCE .ROUTE ; Start 06/17/17 at 05:33; Stop 06/17/17 at 05:34; Status DC Ondansetron HCl (Zofran) 4 mg 1X ONCE IV Last administered on 06/17/17 05:38 ; Start 06/17/17 at 06:00; Stop 06/17/17 at 06:01; Status DC Piperacillin Sod/ Tazobactam Sod 4.5 gm/Sodium Chloride 100 ml @ 200 mls/hr Q6HRS IV Last administered on 06/19/17 05:03; Start 06/17/17 at 12:00; Stop at 08:51; Status DC Ondansetron HCl (Zofran) 4 mg PRN Q8HRS PRN IV NAUSEA/VOMITING Last administered on 06/17/17 17:38; Start 06/17/17 at 06:30; Stop 06/18/17 at 06:29 ; Status DC Fentanyl Citrate (Fentanyl 2ml Vial) 50 mcg PRN Q1HR PRN IV PAIN; Start at 06:30; Stop 06/18/17 at 06:29; Status DC Sodium Chloride 1,000 ml @ 100 mls/hr Q10H IV Last administered on 06/18/17 00:59; Start 06/17/17 at 06:30; Stop 06/18/17 at 06:29; Status DC Acetaminophen (Tylenol) 650 mg PRN Q4HRS PRN PO FEVER Last administered on 06/17 23:59; Start 06/17/17 at 06:30; Stop 06/18/17 at 06:29; Status DC Albuterol/ Ipratropium (Duoneb) 3 ml RTQID NEB Last administered on 06/18/17 07:46; Start 06/17/17 at 08:00; Stop 06/18/17 at 07:59; Status DC Insulin Aspart (NovoLOG) 0-5 UNITS TIDWMEALS SQ ; Start 06/17/17 at 08:00 Dextrose (Dextrose 50%-Water Syringe) 12.5 gm PRN Q15MIN PRN IV SEE COMMENTS; Start 06/17/17 at 06:30 Linezolid 300 ml @ 300 mls/hr Q12HR IV Last administered on 06/18/17 21:37; Start 06/17/17 at 21:00; Stop 06/19/17 at 08:51; Status DC Acetaminophen (Tylenol) 325 mg PRN Q6HRS PRN PO PAIN; Start 06/17/17 at 13:30; Stop 06/17/17 at 13:31; Status DC Ascorbic Acid (Vitamin C) 500 mg DAILY PO Last administered on 06/19/17 08:31 ; Start 06/18/17 at 09:00 Aspirin (Ecotrin) 81 mg DAILY PO Last administered on 06/19/17 08:29; Start at 09:00 Atorvastatin Calcium (Lipitor) 40 mg HS PO Last administered on 06/18/17 21:36 ; Start 06/17/17 at 21:00 Bisacodyl (Dulcolax Supp) 10 mg PRN DAILY PRN RC constipation; Start 06/17/17 at 13:30 Collagenase (Santyl) 1 jocy DAILY TP ; Start 06/18/17 at 09:00; Stop 06/18/17 at 12:53; Status DC Ferrous Sulfate (Feosol) 325 mg DAILY08 PO Last administered on 06/18/17 09:03 ; Start 06/18/17 at 08:00; Stop 06/18/17 at 10:30; Status DC Furosemide (Lasix) 20 mg QODAY PO ; Start 06/19/17 at 09:00 Hydroxyzine Pamoate (Vistaril) 25 mg PRN TID PRN PO ITCHING; Start 06/17/17 at 13:30 Magnesium Hydroxide (Milk Of Magnesia) 400 mg PRN DAILY PRN PO CONSTIPATION; Start 06/18/17 at 09:00 Pantoprazole Sodium (Protonix) 40 mg DAILY07 PO Last administered on 06/19/17 07:12; Start 06/18/17 at 07:00 Senna/Docusate Sodium (Senna Plus) 1 tab BID PO Last administered on 06/19/17 08:29; Start 06/17/17 at 21:00 Zinc Sulfate (Orazinc) 220 mg DAILY PO Last administered on 06/19/17 08:31; Start 06/18/17 at 09:00 Hydrocortisone (Cortaid) 1 jocy BID TP ; Start 06/17/17 at 21:00 Isosorbide Mononitrate (Imdur) 60 mg DAILY PO Last administered on 06/19/17 08 :30; Start 06/18/17 at 09:00 Lactobacillus Acidophilus (Bacid, [place]ron[place]-Bid) 1 tab DAILY PO Last administered on 06/19/17 08:31; Start 06/18/17 at 09:00 Oxycodone HCl (Roxicodone) 10 mg PRN Q4HRS PRN PO PAIN Last administered on 05:12; Start 06/17/17 at 14:15 Rivaroxaban (Xarelto) 20 mg DAILY@1700 PO Last administered on 06/18/17 17:27 ; Start 06/17/17 at 17:00 Acetaminophen (Tylenol) 650 mg PRN Q6HRS PRN PO FEVER; Start 06/17/17 at 13:30 Ondansetron HCl (Zofran) 4 mg PRN Q6HRS PRN IV NAUSEA/VOMITING Last administered on 06/18/17 08:47; Start 06/17/17 at 13:30 Morphine Sulfate 2 mg PRN Q2HR PRN IV PAIN Last administered on 06/18/17 04:10 ; Start 06/17/17 at 13:30 Tramadol HCl (Ultram) 50 mg PRN Q6HRS PRN PO PAIN Last administered on 04:51; Start 06/17/17 at 13:30 Hydralazine HCl (Apresoline) 10 mg PRN Q4HRS PRN IVP ELEVATED BP, SEE COMMENTS ; Start 06/17/17 at 13:30 Docusate Sodium (Colace) 100 mg PRN DAILY PRN PO CONSTIPATION; Start 06/17/17 at 13:30 Info (Anti-Coagulation Monitoring By Pharmacy) 1 each PRN DAILY PRN MC SEE COMMENTS Last administered on 06/18/17 15:27; Start 06/17/17 at 14:15 Sulfur Hexafluoride Microspheres (Lumason) 25 mg STK-MED ONCE IVP ; Start at 09:34; Stop 06/18/17 at 09:35; Status DC Ferrous Sulfate (Feosol) 325 mg BIDWMEALS PO Last administered on 06/19/17 08: 31; Start 06/18/17 at 17:00 Linezolid (Zyvox) 600 mg BID PO ; Start 06/19/17 at 09:00 Amoxicillin/ Clavulanate Potassium (Augmentin 875/ 125mg) 1 tab BID PO ; Start 06/19/17 at 09:00 Active Scripts Active Reported Cleocin 600 [id number] (Clindamycin Phosphate/D5w) 600 Mg/50 Ml Piggyback 600 Mg IV Q8 Piperacil-Tazobact 3.375 Gm Vl (Piperacillin Sodium/Tazobactam) 3.375 Gm Vial 3.375 Gm IV Q8HRS Acidophilus Probiotic Tablet (Lactobacillus Acidophilus/Fos) 1 Each Tablet 1 Each PO BID Bisacodyl 10 Mg/30 Ml Enema 10 Mg RC PRN DAILY PRN Bisacodyl 10 Mg Supp.rect 10 Mg RC PRN DAILY PRN Hydrocortisone 453.6 Gm Cream..g. 1 Jocy TP BID Multi-Day Vitamins (Multivitamin) 1 Each Tablet 1 Tab PO DAILY Santyl Ointment (Collagenase) 30 Gm Oint...g. 1 Jocy TP DAILY DIRECTED BY PHYSICIAN Acetaminophen 325 Mg Tablet 325 Mg PO Q6HRS PRN Milk Of Magnesia (Magnesium Hydroxide) 400 Mg/5 Ml Oral.susp 400 Mg PO DAILY PRN Milk Of Magnesia (Magnesium Hydroxide) 400 Mg/5 Ml Oral.susp 400 Mg PO DAILY Hydroxyzine Pamoate 25 Mg Capsule 25 Mg PO TID PRN Oxycodone Hcl 10 Mg Tablet 10 Mg PO Q4HRS PRN Acidophilus (Lactobacillus Acidophilus) 1 Each Capsule 1 Each PO BID Senna Plus Tablet (Sennosides/Docusate Sodium) 1 Each Tablet 1 Each PO BID Atorvastatin Calcium 40 Mg Tablet 40 Mg PO HS Ascorbic Acid 500 Mg Tablet 500 Mg PO DAILY Isosorbide Mononitrate Er (Isosorbide Mononitrate) 60 Mg Tab.er.24h 1 Tab PO DAILY Zinc Sulfate 220 Mg Capsule 220 Mg PO DAILY Aspir 81 (Aspirin) 81 Mg Tablet.dr 1 Tab PO DAILY Ferrous Sulfate 325 Mg Tablet 1 Tab PO DAILY Pantoprazole Sodium 40 Mg Tablet.dr 1 Tab PO DAILY Miralax (Polyethylene Glycol 3350) 17 Gm Powd.pack 1 Packet PO DAILY PRN Eucerin Creme (Mineral Oil/White Petrolatum) 120 Gm Cream..g. 1 Jocy TP BID Xarelto (Rivaroxaban) 20 Mg Tablet 20 Mg PO DAILY Furosemide 20 Mg Tablet 1 Tab PO QODAY Vitals/I & O Vital Sign - Last 24 Hours 06/18/17 06/18/17 06/18/17 06/18/17 11:00 12:03 15:00 19:34 Temp 97.8 99.6 97.8 99.6 Pulse 119 110 108 Resp 27 27 18 B/P (MAP) 118/66 (83) 124/69 (87) 100/46 (64) Pulse Ox 93 93 93 98 O2 Delivery Room Air Room Air Room Air Room Air 06/18/17 06/18/17 06/19/17 06/19/17 19:35 22:26 02:21 05:12 Temp 98.6 98.3 98.6 98.3 Pulse 108 111 Resp 18 17 18 B/P (MAP) 105/64 (78) 96/58 (71) Pulse Ox 95 91 98 O2 Delivery Room Air Room Air Room Air 06/19/17 06/19/17 06/19/17 06/19/17 06:22 07:00 08:10 08:30 Temp 98.2 98.2 Pulse 107 107 Resp 18 20 B/P (MAP) 105/57 (73) 105/57 Pulse Ox 95 93 O2 Delivery Room Air Room Air Room Air Intake and Output 06/18/17 06/18/17 06/19/17 15:00 23:00 07:00 Output Total 250 ml 800 ml Balance -250 ml -800 ml Nutrition Consultation Dietary Evaluation: Recommendations by RD: Dietary education by RD Comments: Provided education handouts on general healthy eating, label reading and portion control. Discussed Expected Outcomes/Goals: meet 75% estimated nutrition needs Malnutrition Findings: Malnutrition related to morbid: No Weight Status: Morbidly Obese DORCAS LARA MD Jun 19, 2017 09:41
[2017-06-19] MEDS: AMOXICILLIN/K CLAV 875/125MG TABLET. PO SCH ×2 (10:00→20:53)
[2017-06-19] MEDS: LINEZOLID 600 MG TABLET PO SCH ×2 (10:00→20:53)
[2017-06-19] MEDS: HYDROCORTISONE 1% TOPICAL CREAM 30GM TUBE. TP SCH ×2 (10:24→20:54)
[2017-06-19 11:00] VITALS: BP 115/66
--- NOTE | 2017-06-19 12:59 | PDOC ---
CARDIO Progress Notes Date and Time Date of Service 06/19/17 Time of Evaluation 1245 Subjective Subjective: No Chest Pain, No shortness of breath, No Palpitations Vitals Vitals Vital Signs Date Time Temp Pulse Resp B/P (MAP) Pulse Ox O2 Delivery O2 Flow Rate FiO2 06/19/17 11:24 18 06/19/17 11:00 98.2 108 115/66 (82) 100 Room Air 98.2 Weight Weight [ ] Input and Output Intake and Output Intake and Output 06/19/17 07:00 Output Total 1050 ml Balance -1050 ml Output Urine Total 1050 ml # Voids 1 Laboratory Labs Laboratory Tests Test 06/18/17 17:26 06/18/17 17:30 06/18/17 21:19 06/19/17 05:00 Glucose (Fingerstick) 97 mg/dL (70-99) 134 mg/dL (70-99) Troponin I Quantitative 0.606 ng/mL (0.000-0.055) White Blood Count 14.9 x10^3/uL (4.0-11.0) Red Blood Count 2.53 x10^6/uL (3.50-5.40) Hemoglobin 7.1 g/dL (12.0-15.5) Hematocrit 21.7 % (36.0-47.0) Mean Corpuscular Volume 86 fL (79-100) Mean Corpuscular Hemoglobin 28 pg (25-35) Mean Corpuscular Hemoglobin Concent 33 g/dL (31-37) Red Cell Distribution Width 18.0 % (11.5-14.5) Platelet Count 190 x10^3/uL (140-400) Neutrophils (%) (Auto) 87 % (31-73) Lymphocytes (%) (Auto) 7 % (24-48) Monocytes (%) (Auto) 5 % (0-9) Eosinophils (%) (Auto) 1 % (0-3) Basophils (%) (Auto) 0 % (0-3) Neutrophils # (Auto) 12.9 x10^3uL (1.8-7.7) Lymphocytes # (Auto) 1.0 x10^3/uL (1.0-4.8) Monocytes # (Auto) 0.8 x10^3/uL (0.0-1.1) Eosinophils # (Auto) 0.1 x10^3/uL (0.0-0.7) Basophils # (Auto) 0.1 x10^3/uL (0.0-0.2) Sodium Level 138 mmol/L (136-145) Potassium Level 3.7 mmol/L (3.5-5.1) Chloride Level 103 mmol/L (98-107) Carbon Dioxide Level 26 mmol/L (21-32) Anion Gap 9 (6-14) Blood Urea Nitrogen 17 mg/dL (7-20) Creatinine 1.0 mg/dL (0.6-1.0) Estimated GFR (Cockcroft-Gault) 69.9 Glucose Level 108 mg/dL (70-99) Calcium Level 7.8 mg/dL (8.5-10.1) Triglycerides Level 86 mg/dL (0-150) Cholesterol Level 69 mg/dL (0-200) LDL Cholesterol, Calculated 40 mg/dL (0-100) VLDL Cholesterol, Calculated 17 mg/dL (0-40) Non-HDL Cholesterol Calculated 57 mg/dL (0-129) HDL Cholesterol 12 mg/dL (40-60) Cholesterol/HDL Ratio 5.8 Test 06/19/17 07:44 06/19/17 12:06 Glucose (Fingerstick) 114 mg/dL (70-99) 118 mg/dL (70-99) Microbiology Micro Microbiology 06/17/17 Blood Culture - Preliminary, Resulted NO GROWTH AFTER 1 DAY 06/17/17 Urine Culture - Preliminary, Resulted 06/17/17 Urine Culture Result 1 (HUY) - Preliminary, Resulted Physical Exam HEENT: Neck Supple W Full Motion Chest: Symmetric LUNGS: Other (diminished throughout ) Heart: S1S2, other (tele ST. distant heart tones ) Abdomen: Soft N/T, Other (truncal obesity ) Extremities: Other (significant, chronic LE lymphedema. right leg wound vac) Neurology: alert, oriented, follow commands Assessment Assessment 1. Chest pain; atypical. Troponin highest 0.606. Likely type II, demand ischemia in the setting of acute febrile infection. No further CP. Echo with preserved LV function. No WMA present. Continue medical management. Could consider further ischemia workup if recurrent. 2. Sinus tachycardia; likely reactive to acute infection, dehydration 3. H/o hypertension; hypotensive upon admission- improved with IVF. remains low -normotensive. 4. Hyperlipidemia: lipids on goal. Statin therapy 4. Diabetes; per PCP 5. Chronic LE lymphedema 6. Leukocytosis/fevers; culture obtained. Antibiotic therapy as per ID 7. Right left wound with wound vac 8. Hypothyroidism; TSH 7.770 9. Recent PE; on Xarelto Recommendations Continue ASA/statin. Add BB when BP consistently adequate. Recheck trop for downward trend Supportive care KAY IGNACIO APRN Jun 19, 2017 12:59
[2017-06-19 15:00] VITALS: BP 106/61
[2017-06-19] MEDS: traMADol 50 MG TABLET PO PRN (17:25)
[2017-06-19] MEDS: RIVAROXABAN 10 MG TABLET. PO SCH (17:25)
[2017-06-19 19:25] VITALS: BP 107/60
[2017-06-19] MEDS: ATORVASTATIN CALCIUM 40 MG TABLET. PO SCH (20:53)
[2017-06-19 23:04] VITALS: BP 112/65
[2017-06-20 02:25] VITALS: BP 111/71
[2017-06-20] MEDS: oxyCODONE IR 5 MG TABLET PO PRN ×3 (04:29→12:25)
[2017-06-20] MEDS: PANTOPRAZOLE 40 MG TABLET.DR. PO SCH (05:08)
[2017-06-20] MEDS: INSULIN ASPART 300 UNITS/3 ML INSULN.PEN SQ SCH ×3 (08:00→17:00)
--- NOTE | 2017-06-20 08:23 | PDOC ---
Infectious Disease Note Subjective Subjective pt is feeling good, ready to go back to rehab ROS ROS GEN: Denies fevers, chills, sweats HEENT: Denies blurred vision, sore throat CV: Denies chest pain RESP: Denies shortness of air, cough GI: Denies n/v/d NEURO: Denies confusion, dizziness Vital Sign Vital Signs Vital Signs Date Time Temp Pulse Resp B/P (MAP) Pulse Ox O2 Delivery O2 Flow Rate FiO2 06/20/17 02:25 98.1 104 20 111/71 (84) 93 Room Air 98.1 Physical Exam PHYSICAL EXAM GENERAL: NAD, Alert HEENT: PERRL, OC/OP NECK: Supple, no JVD, no LN LUNGS: Clear HEART: S1S2, no gallop, no murmur ABD: Soft, NT, no organomegaly, no rebound EXT: ++++ edema, no cyanosis VIDEOGAME DESIGNER: Alert, oriented x 3, no focal neurologic deficit SKIN: No rash IV: ok Labs Lab Laboratory Tests Test 06/19/17 12:06 06/19/17 13:05 06/19/17 17:07 06/19/17 20:30 Glucose (Fingerstick) 118 mg/dL (70-99) 114 mg/dL (70-99) 130 mg/dL (70-99) Troponin I Quantitative 0.329 ng/mL (0.000-0.055) Micro BC contaminant Objective Assessment Fever improved Leukocytosis Rt leg wound Left foot wound Rt foot wound Obesity Plan Plan of Care po zyvox and augmentin for 5 more days leg elevation pt/ot d/c ISABEL Da Silva MD Jun 20, 2017 08:23
[2017-06-20 08:28] VITALS: BP 127/59
[2017-06-20] MEDS: AMOXICILLIN/K CLAV 875/125MG TABLET. PO SCH (08:34)
[2017-06-20] MEDS: ZINC SULFATE 220 MG CAPSULE. PO SCH (08:34)
[2017-06-20] MEDS: LINEZOLID 600 MG TABLET PO SCH (08:34)
[2017-06-20] MEDS: ISOSORBIDE MONONITRATE ER 30 MG TAB.ER.24H PO SCH (08:34)
[2017-06-20] MEDS: SENNOSIDES/DOCUSATE 8.6/50MG TABLET. PO SCH (08:34)
[2017-06-20] MEDS: ASCORBIC ACID 500 MG TABLET PO SCH (08:35)
[2017-06-20] MEDS: ASPIRIN ENTERIC COATED 81 MG TABLET.DR. PO SCH (08:35)
[2017-06-20] MEDS: FERROUS SULFATE 325 MG TABLET. PO SCH (08:35)
[2017-06-20] MEDS: LACTOBACILLUS ACIDOPH & BULGAR 1 TABLET. PO SCH (10:43)
[2017-06-20] MEDS: HYDROCORTISONE 1% TOPICAL CREAM 30GM TUBE. TP SCH (10:43)
[2017-06-20 11:07] VITALS: BP 112/66
[2017-06-20 11:09] VITALS: BP 115/64
[2017-06-20] MEDS: traMADol 50 MG TABLET PO PRN (11:48)
--- NOTE | 2017-06-20 14:08 | PDOC ---
CARDIO Progress Notes Date and Time Date of Service 06/20/17 Time of Evaluation 1215 Subjective Subjective: No Chest Pain, No shortness of breath, No Palpitations Vitals Vitals Vital Signs Date Time Temp Pulse Resp B/P (MAP) Pulse Ox O2 Delivery O2 Flow Rate FiO2 06/20/17 12:56 20 Room Air 06/20/17 11:48 96 06/20/17 11:09 98.6 100 115/64 (81) 98.6 Weight Weight [ ] Input and Output Intake and Output Intake and Output 06/20/17 07:00 Intake Total 1660 ml Output Total 1000 ml Balance 660 ml Intake Oral 1660 ml Output Urine Total 1000 ml Laboratory Labs Laboratory Tests Test 06/19/17 17:07 06/19/17 20:30 06/20/17 08:22 06/20/17 11:04 Glucose (Fingerstick) 114 mg/dL (70-99) 130 mg/dL (70-99) 108 mg/dL (70-99) 114 mg/dL (70-99) Microbiology Micro Microbiology 06/17/17 Blood Culture - Preliminary, Resulted NO GROWTH AFTER 2 DAYS 06/17/17 Urine Culture - Final, Complete 06/17/17 Urine Culture Result 1 (HUY) - Final, Complete Physical Exam HEENT: Neck Supple W Full Motion Chest: Symmetric LUNGS: Other (diminished throughout ) Heart: S1S2, other (tele ST. distant heart tones ) Abdomen: Soft N/T, Other (truncal obesity ) Extremities: Other (significant, chronic LE lymphedema. right leg wound vac) Neurology: alert, oriented, follow commands Assessment Assessment 1. Chest pain; atypical. Troponin highest 0.606. Likely type II, demand ischemia in the setting of acute febrile infection. No further CP. Echo with preserved LV function. No WMA present. No further CP. Continue medical management. 2. Sinus tachycardia; likely reactive to acute infection, dehydration 3. H/o hypertension; hypotensive upon admission- improved with IVF. remains low -normotensive. 4. Hyperlipidemia: lipids on goal. Statin therapy 4. Diabetes; per PCP 5. Chronic LE lymphedema 6. Leukocytosis/fevers; culture obtained. Antibiotic therapy as per ID 7. Right left wound with wound vac 8. Hypothyroidism; TSH 7.770 9. Recent PE; on Xarelto SANDEE,EMILY PAYING TELLER Jun 20, 2017 14:07
[2017-06-20 14:36] VITALS: BP 127/66
== END 2017-06-20 16:55 | DRG 871 ==
LOC: ER 03:31 → 1 WEST ICU 04:24 → 2 SOUTH 06-18 18:36
PROVIDERS: ADMIT Internal Medicine; ATTEND Internal Medicine
DX: A41.9 Sepsis, unspecified organism (principal); R65.21 Severe sepsis with septic shock; E44.0 Moderate protein-calorie malnutrition; L03.115 Cellulitis of right lower limb; Z68.45 Body mass index [BMI] 70 or greater, adult; D64.9 Anemia, unspecified; E78.5 Hyperlipidemia, unspecified; E03.9 Hypothyroidism, unspecified; E86.0 Dehydration; E11.22 Type 2 diabetes mellitus with diabetic chronic kidney disease; E66.01 Morbid (severe) obesity due to excess calories; I12.9 Hypertensive chronic kidney disease with stage 1 through stage 4 chronic kidney disease, or unspecified chronic kidney disease; I89.0 Lymphedema, not elsewhere classified; N18.3 Chronic kidney disease, stage 3 (moderate); S91.301A Unspecified open wound, right foot, initial encounter; S91.302A Unspecified open wound, left foot, initial encounter; Z82.49 Family history of ischemic heart disease and other diseases of the circulatory system; Z86.711 Personal history of pulmonary embolism; Z88.1 Allergy status to other antibiotic agents; Z79.899 Other long term (current) drug therapy; Z79.1 Long term (current) use of non-steroidal anti-inflammatories (NSAID); Z79.2 Long term (current) use of antibiotics; Z91.81 History of falling
CPT/HCPCS: 36415; 71010; 80048; 80061; 80076; 81001; 82607; 82728; 82746; 82962; 83540; 83550; 83605; 83880; 84439; 84443; 84484; 85007; 85027; 87040; 87086; 87205; 87641; 93005; 93306; 94250; 94640; 96361; 96365; 96368; 96375; G0481; J1815; J2020; J2270; J2405; J2543; J3010; J3490; J7030; J7620; 97530; 97535; 99285-25; A6539